=== PATIENT | female | born 1995 | race Two or more races ===

== ENCOUNTER 2016-12-25 13:59 | Emergency (ER) | payer OTHER ==
[2016-12-25] MEDS ORDERED: DEXAMETHASONE 10 MG/ML VIAL IVP ONE (14:35)
--- NOTE | 2016-12-25 14:35 | EDPHY ---
H & P Time Seen by Provider: 12/25/16 14:09 HPI/ROS: CHIEF COMPLAINT: Migraine headache HISTORY OF PRESENT ILLNESS: 20-year-old female presents to the emergency department with headache that began this morning. The patient states that she has migraine headaches typically on a weekly basis. She feels that this is a typical headache for her. She feels nauseous. She tried her home medications without relief. No reported trauma. No chest pain or difficulty breathing. No neck pain. No fevers or chills. She is photophobic however no other visual changes. REVIEW OF SYSTEMS: Constitutional: No fever, no chills. Eyes: No double or blurry vision. ENT: No sore throat. Respiratory: No cough, no shortness of breath. Cardiac: No chest pain. Gastrointestinal: Nausea. No abdominal pain, vomiting or diarrhea. Genitourinary: No dysuria. Musculoskeletal: No neck or back pain. Skin: No rashes. 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 Mentating normally and answering questions appropriately. Vital signs are stable. Eyes: Pupils equal and round. Extraocular motions are all intact. ENT: Mouth: Mucous membranes moist. Respiratory: No wheezing, rhonchi, or rales, lungs are clear to auscultation. Cardiovascular: Regular rate and rhythm. Gastrointestinal: Abdomen is soft and nontender, no masses, no rebound or guarding, bowel sounds normal. Neurological: Alert and oriented x 3, cranial nerves II through XII grossly intact Skin: Warm and dry, no rashes. Musculoskeletal: Nontender to palpate along the cervical, thoracic or lumbar spine. Neck is supple. Extremities: Full range of motion and no peripheral edema. Psychiatric: Patient is oriented X 3, there is no agitation. Constitutional: Initial Vital Signs Temperature (C) 36.4 C 12/25/16 14:04 Heart Rate 83 12/25/16 14:04 Respiratory Rate 16 12/25/16 14:04 Blood Pressure 114/76 12/25/16 14:04 O2 Sat (%) 100 12/25/16 14:04 O2 Delivery Mode Room Air Allergies/Adverse Reactions: No Known Allergies Allergy (Verified 12/25/16 14:07) Home Medications: Medication Instructions [facility]ed [facility] 12/25/16 Medical Decision Making ED Course/Re-evaluation: 20-year-old female presents to the emergency department with headache and feeling nauseous. Patient feels that this is the typical migraine headache. An IV was established and the patient was given Decadron, Toradol, Reglan, and Benadryl IV, IV normal saline and observed. The patient was feeling much better. She was comfortable being discharged home. Her headache resolved. Her nausea improved and she was drinking juice. She was given neurology referral. Differential Diagnosis: Headache including but not limited to subarachnoid hemorrhage, migraine headache , tension headache and infectious causes such as meningitis, pharyngitis and sinusitis. - Data Points Medications Given: Discontinued Medications Dexamethasone (Decadron Injection) 10 mg IVP EDNOW ONE Stop: 12/25/16 14:36 Last Admin: 12/25/16 15:15 Dose: 10 mg Diphenhydramine HCl (Benadryl Injection) 25 mg IVP EDNOW ONE Stop: 12/25/16 14:37 Last Admin: 12/25/16 15:15 Dose: 25 mg Sodium Chloride (Ns) 1,000 mls @ 0 mls/hr IV ONCE ONE PRN Reason: Wide Open Stop: 12/25/16 14:37 Last Admin: 12/25/16 15:15 Dose: 1,000 mls Ketorolac Tromethamine (Toradol) 30 mg IVP EDNOW ONE Stop: 12/25/16 14:37 Last Admin: 12/25/16 15:15 Dose: 30 mg Metoclopramide HCl (Reglan Injection) 10 mg IVP EDNOW ONE Stop: 12/25/16 14:37 Last Admin: 12/25/16 15:15 Dose: 10 mg Departure - Departure Disposition: Home, Routine, Self-Care Clinical Impression: Migraine headache Qualifiers: Migraine type: unspecified Status migrainosus presence: without status migrainosus Intractability: not intractable Qualified Code(s): G43.909 - Migraine, unspecified, not intractable, without status migrainosus Condition: Good Instructions: Migraine Headache (ED) Additional Instructions: Clear liquids and then slowly advance diet as tolerated. Return if you develop recurring headache, vomiting, or if you feel worse in any way. Referrals: Moise Keen MD [Medical Doctor] - 5-7 days, call for appt. (Neurologist on-call)
[2016-12-25] MEDS ORDERED: NS 1,000 ML IV ONE (14:36)
[2016-12-25] MEDS ORDERED: KETOROLAC 30 MG/1 ML SDV IVP ONE (14:36)
[2016-12-25] MEDS ORDERED: METOCLOPRAMIDE 10 MG/2 ML VIAL IVP ONE (14:36)
[2016-12-25 17:21] VITALS: BP 109/78; PULSE 83; RESP 14; TEMP 98.4; O2SAT 98
== END 2016-12-25 17:20 | disposition home or self-care (01) ==
DX: G43.909 Migraine, unspecified, not intractable, without status migrainosus (principal)
CPT/HCPCS: 96374; J1200; J1885; J2765

== ENCOUNTER 2018-12-28 11:30 | Emergency (ER) | payer OTHER ==
--- NOTE | 2018-12-28 13:05 | EDPHY ---
H & P Stated Complaint: swollen lymph/general fatigue abnl labs Time Seen by Provider: 12/28/18 12:56 HPI/ROS: CHIEF COMPLAINT: Lymphadenopathy, malaise, fever HISTORY OF PRESENT ILLNESS: The patient presents the ED with a 10 day history of lymphadenopathy, malaise, fatigue and fever. The patient saw her primary care provider approximately 3 days ago. She was noted to have slightly elevated liver function test and lymphocytosis. The patient's hepatitis panel was negative. She had a negative rapid flu in mono test. The patient complains of ongoing tender adenopathy. She denies rash. She denies abdominal pain. She is scheduled to see oncology for a consultation next week. REVIEW OF SYSTEMS: A comprehensive 10 point review of systems is otherwise negative aside from elements mentioned in the history of present illness. Source: Patient Exam Limitations: No limitations - Personal History LMP (Females 10-55): 1-7 Days Ago Current Tetanus Diphtheria and Acellular Pertussis (TDAP): No - Medical/Surgical History Hx Asthma: No Hx Chronic Respiratory Disease: No Hx Diabetes: No Hx Cardiac Disease: No Hx Renal Disease: No Hx Cirrhosis: No Hx Alcoholism: No Hx HIV/AIDS: No Hx Splenectomy or Spleen Trauma: No Other PMH: PMH- NOSE BLEEDS, MIGRAINES - Social History Smoking Status: Never smoked - Physical Exam Exam: General Appearance: Alert, no distress Eyes: Pupils equal and round no pallor or injection ENT, Mouth: Mucous membranes moist, tender anterior chain and posterior chain adenopathy noted Respiratory: There are no retractions, lungs are clear to auscultation Cardiovascular: Regular rate and rhythm Gastrointestinal: Abdomen is soft and nontender, no masses, bowel sounds normal Neurological: A&O, normal motor function, normal sensory exam, normal cranial nerves Skin: Warm and dry, no rashes Musculoskeletal: Neck is supple nontender Extremities: symmetrical, full range of motion Psychiatric: Patient is oriented X 3, there is no agitation Constitutional: Initial Vital Signs Temperature (C) 37.3 C 12/28/18 11:33 Heart Rate 100 12/28/18 11:33 Respiratory Rate 18 12/28/18 11:33 Blood Pressure 125/94 H 12/28/18 11:33 O2 Sat (%) 97 12/28/18 11:33 O2 Delivery Mode Room Air Allergies/Adverse Reactions: No Known Allergies Allergy (Verified 12/28/18 11:33) Home Medications: Medication Instructions Recorded NK [No Known Home Meds] 12/28/18 Medical Decision Making ED Course/Re-evaluation: The patient presents to the ED with concerns about worsening adenopathy. I reviewed the patient's past medical records. Laboratory testing is repeated and she has ongoing lymphocytosis, slight thrombocytopenia and a mild transaminitis. The patient is nontoxic well-appearing. She has no clinical evidence of meningitis. I have ordered an Ebstein Hutton virus panel. At this point time I do feel the patient is stable to follow up with Hematology as an outpatient. She will be discharged home with customary aftercare instructions and return precautions. Differential Diagnosis: Differential diagnosis considered includes Ebstein Hutton virus, hepatitis, viral syndrome, leukemia - Data Points Laboratory Results: Laboratory Results 12/28/18 13:20 12/28/18 12/28/18 12/28/18 13:20 13:20 13:20 WBC 12.86 10^3/uL H 10^3/uL (3.80-9.50) RBC 4.87 10^6/uL 10^6/uL (4.18-5.33) Hgb 12.9 g/dL g/dL (12.6-16.3) Hct 39.6 % % (38.0-47.0) MCV 81.3 fL L fL (81.5-99.8) MCH 26.5 pg L pg (27.9-34.1) MCHC 32.6 g/dL g/dL (32.4-36.7) RDW 13.1 % % (11.5-15.2) Plt Count 145 10^3/uL L 10^3/uL (150-400) MPV 10.0 fL fL (8.7-11.7) Neut % (Auto) Not Reported Lymph % (Auto) Not Reported [place] % (Auto) Not Reported Eos % (Auto) Not Reported Baso % (Auto) Not Reported Nucleat RBC Rel Count Not Reported Absolute Neuts (auto) Not Reported Absolute Lymphs (auto) Not Reported Absolute Monos (auto) Not Reported Absolute Eos (auto) Not Reported Absolute Basos (auto) Not Reported Absolute Nucleated RBC Not Reported Immature Gran % Not Reported Seg Neutrophils % 10.0 % % Band Neutrophils % 4.0 % % Lymphocytes % 85.0 % % Monocytes % 1.0 % % Eosinophils % 0.0 % % Basophils % 0.0 % % Metamyelocytes % 0.0 % % Myelocytes % 0.0 % % Promyelocytes % 0.0 % % Blast Cells % 0.0 % % Immature Gran # Not Reported Absolute Seg Neuts 1.29 10^3/uL L 10^3/uL (1.70-6.50) Absolute Band Neuts 0.51 10^3/uL 10^3/uL (0.00-0.70) Absolute Lymphocytes 10.93 10^3/uL H 10^3/uL (1.00-3.00) Absolute Monocytes 0.13 10^3/uL L 10^3/uL (0.30-0.80) Absolute Eosinophils 0.00 10^3/uL L 10^3/uL (0.03-0.40) Absolute Basophils 0.00 10^3/uL L 10^3/uL (0.02-0.10) Absolute Metamyelocyte 0.00 10^3/mL 10^3/mL (0.00-0.00) Absolute Myelocytes 0.00 10^3/mL 10^3/mL (0.00-0.00) Absolute Promyelocytes 0.00 10^3/uL 10^3/uL (0.00-0.00) Absolute Plasma Cells 0.00 10^3/uL 10^3/uL (0.00-0.00) Differential Comment SEE COMMENT RBC/WBC/PLT Morphology NORMAL (NORMAL) Atypical Lymphocytes 1+ H Absolute Blast Cells 0.00 10^3/uL 10^3/uL (0.00-0.00) Plasma Cells % 0.0 % % Smudge Cells 1+ H Platelet Estimate DECREASED L (ADEQ) Smear Review By Pending Total Bilirubin 0.4 mg/dL mg/dL (0.1-1.4) Conjugated Bilirubin 0.4 mg/dL mg/dL (0.0-0.5) Unconjugated Bilirubin 0.0 mg/dL mg/dL (0.0-1.1) AST 107 IU/L H IU/L (14-46) ALT 151 IU/L H IU/L (9-52) Alkaline Phosphatase 124 IU/L IU/L (38-126) Total Protein 8.1 g/dL g/dL (6.3-8.2) Albumin 4.6 g/dL g/dL (3.5-5.0) Beta HCG, Qual EBV Capsid Ag IgG Ab Pending EBV Capsid Ag IgM Ab Pending EBV Nuclear Antigen Ab Pending EBV Interpretation Pending Monoscreen 12/28/18 13:20 WBC RBC Hgb Hct MCV MCH MCHC RDW Plt Count MPV Neut % (Auto) Lymph % (Auto) [place] % (Auto) Eos % (Auto) Baso % (Auto) Nucleat RBC Rel Count Absolute Neuts (auto) Absolute Lymphs (auto) Absolute Monos (auto) Absolute Eos (auto) Absolute Basos (auto) Absolute Nucleated RBC Immature Gran % Seg Neutrophils % Band Neutrophils % Lymphocytes % Monocytes % Eosinophils % Basophils % Metamyelocytes % Myelocytes % Promyelocytes % Blast Cells % Immature Gran # Absolute Seg Neuts Absolute Band Neuts Absolute Lymphocytes Absolute Monocytes Absolute Eosinophils Absolute Basophils Absolute Metamyelocyte Absolute Myelocytes Absolute Promyelocytes Absolute Plasma Cells Differential Comment RBC/WBC/PLT Morphology Atypical Lymphocytes Absolute Blast Cells Plasma Cells % Smudge Cells Platelet Estimate Smear Review By Total Bilirubin Conjugated Bilirubin Unconjugated Bilirubin AST ALT Alkaline Phosphatase Total Protein Albumin Beta HCG, Qual NEGATIVE EBV Capsid Ag IgG Ab EBV Capsid Ag IgM Ab EBV Nuclear Antigen Ab EBV Interpretation Monoscreen NEGATIVE (NEGATIVE) Departure - Departure Disposition: Home, Routine, Self-Care Clinical Impression: Lymphocytosis, Thrombocytopenia, Viral syndrome Condition: Good Instructions: Viral Syndrome (ED) Additional Instructions: 1. Please follow-up with Hematology as scheduled. Additional testing has been ordered in the emergency department today including an Ebstein Hutton virus panel. 2. Return to the ED for markedly worsening symptoms or other concerns. 3. Tylenol and ibuprofen as needed for pain and fever. Referrals: Shad Mark PA [Primary Care Provider] - As per Instructions
[2018-12-28 14:38] LABS: PLATELET COUNT 145 10^3/uL (150-400)
[2018-12-28 15:16] VITALS: BP 129/95
== END 2018-12-28 15:18 | disposition home or self-care (01) ==
DX: D72.820 Lymphocytosis (symptomatic) (principal); D69.6 Thrombocytopenia, unspecified; B34.9 Viral infection, unspecified
CPT/HCPCS: 86664-90; 86665-90

== ENCOUNTER 2018-12-31 10:59 | Inpatient (IN) | payer OTHER ==
[2018-12-31] MEDS ORDERED: NS 1,000 ML IV ONE ×2 (11:47→13:39)
--- NOTE | 2018-12-31 11:52 | EDPHY ---
H & P Stated Complaint: Dizziness Time Seen by Provider: 12/31/18 11:17 HPI/ROS: CHIEF COMPLAINT: Dizziness, left arm pain HISTORY OF PRESENT ILLNESS: 23-year-old female presents with dizziness and left arm pain. 4 weeks ago she had a several day history of sore throat, which completely resolved. 2 weeks later, she developed recurrent sore throat, adenopathy and excessive fatigue. She was seen in this emergency department 3 days ago and EBV titers consistent with recent mononucleosis. 2 days ago, she developed intermittent left upper extremity pain, associated with numbness of her 4th and 5th fingers. The pain has been intermittent since then. This morning, she had similar pain, followed by a near syncopal episode. Currently she feels dizzy when she sits up and has left-sided weakness. No headache and no fever. REVIEW OF SYSTEMS: complete 10 point ROS reviewed and is negative except for the noted elements in the HPI - Personal History LMP (Females 10-55): 8-14 Days Ago Current Tetanus/Diphtheria Vaccine: Yes Current Tetanus Diphtheria and Acellular Pertussis (TDAP): Yes - Medical/Surgical History Hx Asthma: No Hx Chronic Respiratory Disease: No Hx Diabetes: No Hx Cardiac Disease: No Hx Renal Disease: No Hx Cirrhosis: No Hx Alcoholism: No Hx HIV/AIDS: No Hx Splenectomy or Spleen Trauma: No Other PMH: PMH- NOSE BLEEDS, MIGRAINES - Social History Smoking Status: Never smoked Alcohol Use: None Drug Use: None Additional Social 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, sensation intact to light touch, patellar reflexes 1+ bilaterally Skin: Warm and dry, no rash Extremities: Normal inspection, no tenderness Vascular: 2+ radial pulse Psychiatric: Mood and affect normal Constitutional: Initial Vital Signs Temperature (C) 36.9 C 12/31/18 11:03 Heart Rate 82 12/31/18 11:03 Respiratory Rate 16 12/31/18 11:03 Blood Pressure 155/103 H 12/31/18 11:03 O2 Sat (%) 99 12/31/18 11:03 O2 Delivery Mode Room Air Allergies/Adverse Reactions: No Known Allergies Allergy (Verified 12/28/18 11:33) Home Medications: Medication Instructions Recorded NK [No Known Home Meds] 12/28/18 Medical Decision Making - Diagnostics EKG Interpretation: EKG interpreted by me reveals normal sinus rhythm, rate 89, T-wave inversions in leads V2 and V3. Interpretation: Borderline EKG Imaging Results: Head CT 12/31/18 12:22 Impression: 1. No acute intracranial process. 2. Normal CT angiogram of the head and neck. 3. Cervical adenopathy, likely reactive. Might consider follow-up ultrasound in 3 months to ensure stability or resolution. Stenoses are calculated using [place] Symptomatic Carotid Endarterectomy Trial (NASCET) criteria. Findings and recommendations discussed with LANE GIL at 1323 hour, 2018. Head CTA 12/31/18 12:22 Impression: 1. No acute intracranial process. 2. Normal CT angiogram of the head and neck. 3. Cervical adenopathy, likely reactive. Might consider follow-up ultrasound in 3 months to ensure stability or resolution. Stenoses are calculated using [place] Symptomatic Carotid Endarterectomy Trial (NASCET) criteria. Findings and recommendations discussed with LANE GIL at 1323 hour, 2018. Neck CTA 12/31/18 12:22 Impression: 1. No acute intracranial process. 2. Normal CT angiogram of the head and neck. 3. Cervical adenopathy, likely reactive. Might consider follow-up ultrasound in 3 months to ensure stability or resolution. Stenoses are calculated using [place] Symptomatic Carotid Endarterectomy Trial (NASCET) criteria. Findings and recommendations discussed with LANE GIL at 1323 hour, 2018. Imaging: Discussed imaging studies w/ manager farm Radiologist, I viewed and interpreted images myself ED Course/Re-evaluation: This patient presents with a near syncopal episode and left upper extremity pain. On my initial exam, I set her up to examine her and her heart rate went to 110 and she felt lightheaded. IV normal saline 1 L given for dehydration. She has not had anything to eat or drink this morning. Will reassess after IV fluids. Clinically, this patient does not have meningitis or encephalitis and I have very low clinical suspicion for CVA or other intracranial abnormality. Reflexes present, and sx asymetric, ?GBS or variant, seems unlikely, especially with fairly sudden onset of LLE weakness. 1215: sitting up, IVF infusing, HR 89, had transient RUE weakness, resolved with positioning. Still c/o LLE weakness. Neuro exam unchanged. CT/CTA head and neck ordered. 1330: CT/CTA head and neck unremarkable, results discussed with the patient. She continues to have left lower extremity weakness and dizziness. Neurologic exam is unchanged, she continues to have left lower extremity weakness. MRI of the brain ordered. The hospitalist service was consulted for admission. 1445: MRI of the brain read by Dr. Keyur West is unremarkable except for a small arachnoid cyst. Etiology of the left lower extremity weakness is unclear. Fortunately there is no evidence of intracranial abnormality causing the weakness. The patient will be admitted to the [facility] floor. Continues to have left lower extremity weakness and inability to ambulate. ?related to recent EBV infection This pt utilized 40 minutes of critical care time exclusive of unbundled procedures. Time spent in initial assessment, serial exams, lab/Xray ordering and interpretation, time with consultants. Organ at risk: brain Differential Diagnosis: Altered mental status including but not limited to hypoglycemia, infectious process, electrolyte abnormality, head injury, CVA, brain tumor, encephalitis, meningitis, and intoxicants. - Data Points Laboratory Results: Laboratory Results 01/01/19 04:35 01/01/19 04:35 01/01/19 12:03 Fluid Source SPINAL FLUID CSF HSV I&II DNA (PCR) Cancelled EBV DNA, Qual Negative (Negative) Microbiology Results: MICROBIOLOGY 01/01/19 12:03 Cerebral Spinal Fluid Gram Stain - Final 01/01/19 12:03 Cerebral Spinal Fluid CSF Culture - Preliminary Medications Given: Acetaminophen (Tylenol) 650 mg PO Q4HRS PRN PRN Reason: Pain, Mild/Fever, Can Take PO Stop: 06/29/19 15:42 Last Admin: 01/02/19 09:37 Dose: 650 mg Bisacodyl (Dulcolax Rectal) 10 mg MN DAILY PRN; Protocol PRN Reason: Constipation Stop: 07/01/19 20:18 Last Admin: 01/03/19 13:58 Dose: 10 mg Diazepam (Valium) 5 mg PO Q4 PRN PRN Reason: Anxiety or spasms Stop: 07/01/19 18:10 Last Admin: 01/03/19 10:12 Dose: 5 mg Gabapentin (Neurontin) 300 mg PO BID [facility] Stop: 07/01/19 20:59 Last Admin: 01/03/19 09:03 Dose: 300 mg Sodium Chloride (Ns) 1,000 mls @ 100 mls/hr IV CONT [facility] Stop: 06/30/19 14:59 Last Admin: 01/03/19 09:03 Dose: 1,000 mls Acyclovir 700 mg/ Dextrose 114 mls @ 100 mls/hr IV Q8H [facility] Stop: 01/04/19 00:01 Last Admin: 01/03/19 09:03 Dose: 114 mls Oxycodone HCl (Oxycodone Ir) 5 - 10 mg PO Q3H PRN PRN Reason: MODERATE TO SEVERE PAIN Stop: 01/10/19 19:58 Last Admin: 01/03/19 05:27 Dose: 5 mg Prednisone (Prednisone) 60 mg PO DAILY [facility] Stop: 07/02/19 09:59 Last Admin: 01/03/19 09:03 Dose: 60 mg Senna/Docusate Sodium (Senokot-S) 1 - 2 tab PO BID [facility] PRN Reason: Protocol Stop: 07/01/19 20:59 Last Admin: 01/03/19 09:03 Dose: 2 tab Discontinued Medications Diazepam (Valium) 5 mg IVP Q6HRS PRN PRN Reason: Spasms Stop: 07/01/19 00:20 Last Admin: 01/02/19 09:37 Dose: 5 mg Diazepam (Valium) 5 mg PO Q6HRS PRN PRN Reason: Anxiety or spasms Stop: 07/01/19 13:47 Last Admin: 01/02/19 14:27 Dose: 5 mg Gabapentin (Neurontin) 100 mg PO ONCE ONE Stop: 01/01/19 07:12 Last Admin: 01/01/19 07:41 Dose: 100 mg Gabapentin (Neurontin) 100 mg PO BID [facility] Stop: 06/30/19 20:59 Last Admin: 01/02/19 09:37 Dose: 100 mg Gabapentin (Neurontin) 300 mg PO BID [facility] Stop: 07/01/19 09:59 Last Admin: 01/02/19 11:35 Dose: Not Given Gabapentin (Neurontin) 200 mg PO ONCE ONE Stop: 01/02/19 10:16 Last Admin: 01/02/19 11:29 Dose: 200 mg Sodium Chloride (Ns) 1,000 mls @ 0 mls/hr IV ONCE ONE; Wide Open PRN Reason: Protocol Stop: 12/31/18 11:48 Last Admin: 12/31/18 12:00 Dose: 1,000 mls Sodium Chloride (Ns) 1,000 mls @ 0 mls/hr IV ONCE ONE; Wide Open PRN Reason: Protocol Stop: 12/31/18 13:40 Last Admin: 12/31/18 14:32 Dose: 1,000 mls Methylprednisolone Sodium (Succinate 500 mg/ Dextrose) 100 mls @ 100 mls/hr IV ONCE ONE Stop: 01/01/19 15:09 Last Admin: 01/01/19 15:15 Dose: 100 mls Acyclovir 700 mg/ Dextrose 114 mls @ 100 mls/hr IV Q8HRS [facility] Stop: 01/31/19 14:59 Last Admin: 01/01/19 17:06 Dose: 114 mls Lorazepam (Ativan Injection) 0.5 mg IVP ONCE ONE Stop: 01/01/19 18:20 Last Admin: 01/01/19 18:26 Dose: 0.5 mg Departure - Departure Disposition: [facility] Clinical Impression: Left leg weakness, Dizziness Condition: Fair
[2018-12-31 11:54] LABS: PLATELET COUNT 163 10^3/uL (150-400)
[2018-12-31] MEDS ORDERED: IOPAMIDOL (ISOVUE 370) 100 ML BTL IV ONE (12:33)
--- NOTE | 2018-12-31 14:42 | CPEKG ---
Test Reason : OPEN Blood Pressure : / mmHG Vent. Rate : 089 BPM Atrial Rate : 086 BPM P-R Int : 125 ms QRS Dur : 086 ms QT Int : 374 ms P-R-T Axes : 020 046 020 degrees QTc Int : 456 ms Sinus rhythm Borderline T abnormalities, anterior leads Confirmed by Camelia Gil ([id number]) on 12/31/2018 2:42:29 PM Referred By: CAMELIA GIL Confirmed By:Camelia Gil
[2018-12-31] MEDS ORDERED: ACETAMINOPHEN 325 MG TAB PO PRN (15:43)
--- NOTE | 2018-12-31 16:47 | GHP ---
[f rep st] HISTORY AND PHYSICAL DATE OF ADMISSION: 12/31/2018 CHIEF COMPLAINT: Weakness. HPI: The patient is a 23-year-old college student at who complains of acute onset of dizziness an d weakness. She recently is recovering from a 3-4 week viral illness diagnosed as mono with positive EBV titers. She was sitting at the [facility] at the [facility] talking to her parents on the phone when she felt some pain radiating from her left shoulder to her left hand. She became hot and dizzy and when the pain persisted, she called a friend to get the paramedics to take her here. After coming to the emergency room during her evaluation, the doctor told her to move her leg and she was unable to move her left leg, which is also new finding. The dizziness persisted and she describes th is as balance issues, when she got up to use the bathroom she was unable to get there without holding on because she afraid she was going to fall. She denies any fever. She did have some mild chills. She has had no headache, although she has a history of migraines. No chest pain, coughing, shortnes s of breath. No abdominal complaints, nausea, vomiting, diarrhea. No urinary symptoms. No rash. N o other symptoms noted. REVIEW OF SYSTEMS: A 10-point review of systems is done and is negative, except as stated in the HPI . PAST MEDICAL HISTORY: Migraines. PAST SURGICAL HISTORY: Negative. MEDICATIONS: None. ALLERGIES: No known drug allergies. FAMILY HISTORY: Dad has lymphoma, diabetes, and hypertension. She has a mother with a history of br east cancer. SOCIAL HISTORY: She is from [facility]. 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 She denies any tobacco, alcohol, or recreational drug use. She does have a f iancee but is not sexually active. Menstrual periods are normal. She is not . PHYSICAL EXAM: VITAL: She has been afebrile, heart rate 89-100, blood pressure 110/85, respirations 18. She is 98% on room air. GENERAL: She is a very healthy-appearing 23-year-old [place] wh o is in no obvious distress. She is alert and oriented. HEENT: Pupils are equal. Extraocular move s intact. Mucous members moist. Oropharynx clear. NECK: Supple. No adenopathy but no significant tenderness. HEART: Regular without murmur, gallop, or rub. LUNGS: Clear bilaterally without whee ze, rhonchi, or rales. ABDOMEN: Soft, nontender, nondistended. EXTREMITIES: No clubbing, cyanosis , or edema. MUSCULOSKELETAL: No joint deformities or effusions. NEUROLOGIC: Face is symmetric. S peech is fluent. She is alert and oriented. Upper extremities, left upper extremity is slightly wea ker than the right upper extremity with decreased fire support specialist strength and generalized weakness. Left lower extremity is significantly weaker. Strength is 3+/5. She can just barely lift her leg off the bed with decreased flexion. PSYCHIATRIC: Mood is normal and appropriate. SKIN: Shows no rash. LABORATORY DATA: CBC shows a white count 12.8, hemoglobin 14.8, with a platelet count of 163. She d oes have a lymphocytosis noted but morphology appears normal. Chemistry shows normal electrolytes, g lucose is slightly elevated and LFTs are all slightly elevated. Beta hCG is negative. DIAGNOSTICS: MRI of her brain without contrast shows a benign 2.2 x 1.6 cm left posterior cranial fo ssa arachnoid cyst. No acute intracranial abnormality, cervical lymphadenitis noted. Head and neck CT angiogram showing no acute process and normal. ASSESSMENT AND PLAN: 1. A 23-year-old presents with acute weakness of her left and lower extremities associated with dizz iness. MRI of her brain without contrast is unremarkable, however, she does have objective findings of weakness. Unclear etiology. She did have a recent viral illness, EBV a few weeks ago as her only prodrome, but the symptoms today started fairly acutely. Discussed with Neurology, Dr. Young, who wi ll see her in consultation. In the meantime. I will get further imaging of her spine with and witho ut contrast to look for any lesions. Could consider further imaging the MRI with contrast. Further recommendations will depend upon the patient's clinical course. In the meantime, we will await furth er diagnostics and neurology consult before any treatment will be initiated. 2. Lymphocytosis, likely related to her recent EBV infection. I will repeat a CBC in the morning. The patient has a followup appoint with Dr. Gonzalez. Because of this I will run it by the oncologist in the morning to see if there is any further testing to be done prior to that. However, again, her neutrophil count is relatively normal and I suspect her lymphocytosis is due to her mono. 3. Elevated liver function tests. Again likely related to her mono/EBV infection and will follow up liver function tests in the a.m. She is relatively asymptomatic from that. 4. Deep vein thrombosis prophylaxis. Patient is low risk given her age. We will encourage ambulati on and place SCDs while she is here in case she needs further evaluation with an LP, we will not prov carl chemical prophylaxis at this time. /[id number]/MODL
[2018-12-31] MEDS ORDERED: GADOBUTROL 10 ML VIAL IVP ONE (17:18)
[2018-12-31] MEDS: oxyCODONE IR 5 MG TAB PO PRN ×2 (20:42→22:12)
--- NOTE | 2018-12-31 21:10 | NEUROPROG ---
Assessment: [id number] - Neurology Consult: - CC: Dr. Zonia Mccray consulted neurology for weakness. Results placed in EMR for her review. - HPI: 12/31/18: Pt with recent diagnosis of viral illness felt to be mono for 3-4 weeks when on 12/31/18 she noted left shoulder pain radiating into her left hand. She felt dizzy so called EMS. In the ER she became aware of left leg weakness. Head CT, CTA head/neck, brain MRI wo, and C/T/L MRI wwo all essentially unremarkable for cause. Brain MRI showed benign appearing arachnoid cyst and cervical imaging did show some cervical adenopathy which could be from her recent [place] infection. I initially saw pt on 12/31/18. Neurologic exam showed left arm and leg weakness but otherwise normal exam with preserved reflexes. 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 I will ask ID to evaluate for any active infection as well as obtain spinal tap looking for abnormalities that could help diagnosis Guillian Greentop Syndrome. If, after spinal tap, symptoms are felt most consistent with Guillian Greentop Syndrome then will likely recommend course of IVIG. - PMHx: migraines - SHx: from [place] FHx: lymphoma, DM, HTN, BRCA - ROS: Pt denied acute fever, total vision loss, active severe chest pain, respiratory failure, total body severe rash, total bowel/bladder incontinence, psychosis, active seizures, or active bleeding - O: VS reviewed General: Alert Eyes: Fundoscopic exam not able to visualize optic disks CV: Heart RRR, no murmur, no carotid bruit Lungs: Clear to auscultation bilaterally, no rhonchi or rales Neuro: - Mental: . Oriented x person/place/date . concentration appears normal . speech fluency/comprehension normal . memory appears normal . fund of knowledge appear intact - Cranial Nerves: . II: PERRL, VFFTC . III/IV/: EOMI, no nystagmus, normal smooth pursuits, no Ptosis . V: facial sensation intact to LT . VII: face symmetric to eye closure and smile . VIII: hearing intact to conversation . IX/X: uvula raises symmetrically . XI: SCM 5/5 B/L strength . XII: tongue protrudes midline w/nl strength - Motor: . Tone: normal tone in all 4 extremity . Strength: weakness in left arm and leg, 5/5 strength everywhere else - Reflexes: B/L bic/BR/patella/ach 2/ - Sensory: all 4 extremity intact to light touch - Coord: [id number] wnl, LOURDES wnl, rxiq-bi-wame wnl - Gait: deferred - Labs: 12/31/18- CBC WBC 12.83H, Chem COw 21L GLuc 102H, LFT AST 102H ALT 170H Alk Phos 167H Tot Prot 9.3H - Rads: 12/31/18- Head CT and CTA head/neck: unremarkable 12/31/18- Brain MRI wo con: benign appearing posterior fossa arachnoid cyst, no acute changes, lymphadenitis (I personally visualized the images on 12/31/18) 12/31/18- C/T/L MRI wwo: relatively unremarkable, mild degen changes in thoracic region - Assessment: 1. 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 Recommend ID consult and spinal tap to further evaluate. - Plan: - ID consult (I will speak with them in the morning regarding the case and ask them to consult as well as given input on labs to order with spinal tap) - Spinal Tap (lumbar puncture) to check cell count, protein, glucose, culture, and any additional labs felt useful by ID - Consider IVIG course if labs/CSF studies are consistent with Guillian Greentop Syndrome - Neurology will continue to follow closely Objective: Vital Signs Temp Pulse Resp BP Pulse Ox 36.6 C 86 16 113/75 99 12/31/18 19:48 12/31/18 19:48 12/31/18 19:48 12/31/18 19:48 12/31/18 19:48 Allergies/Adverse Reactions: No Known Allergies Allergy (Verified 12/28/18 11:33)
[2018-12-31 22:51] LABS: CREATINE KINASE 91 IU/L (0-156)
[2019-01-01 05:10] LABS: PLATELET COUNT 144 10^3/uL (150-400)
[2019-01-01] MEDS ORDERED: GABAPENTIN 100 MG CAP PO ONE (07:11)
--- NOTE | 2019-01-01 09:16 | ASMTCMCOM ---
CM Note CM Note Notes: Chart reviewed for discharge planning needs. 23 year old student with c/o neurological symptoms after 3-4 week viral illness. Neuro and hospital medicine following. Needs TBD . Plan: TBD Date Signed: 01/01/2019 09:15 AM Electronically Signed By:Tabby Mix RN
--- NOTE | 2019-01-01 09:36 | NEUROPROG ---
Assessment: [id number] - Neurology Consult: - CC: F/U for left arm/leg weakness - Narrative Summary: 12/31/18: Pt with recent diagnosis of viral illness felt to be mono for 3-4 weeks when on 12/31/18 she noted left shoulder pain radiating into her left hand. She felt dizzy so called EMS. In the ER she became aware of left leg weakness. Head CT, CTA head/neck, brain MRI wo, and C/T/L MRI wwo all essentially unremarkable for cause. Brain MRI showed benign appearing arachnoid cyst and cervical imaging did show some cervical adenopathy which could be from her recent [place] infection. I initially saw pt on 12/31/18. Neurologic exam showed left arm and leg weakness but otherwise normal exam with preserved reflexes. It seemed her acute left arm and leg weakness may be a mild form of Guillain [place] syndrome (acute demyelinating inflammatory polyneuropathy) or post-viral myopathy. I will ask ID to evaluate for any active infection as well as obtain spinal tap looking for abnormalities that could help diagnosis Guillain [place] Syndrome. If, after spinal tap, symptoms are felt most consistent with Guillain [place] Syndrome then will likely recommend course of IVIG. - HPI: F/U 01/01/19. CK wnl. Left arm/leg weakness unchanged from yesterday. Will proceed with spinal tap and have hospitalist touch base with ID and hematology to ensure they do not think any additional testing is needed. Based on spinal tap results and pts weakness tomorrow morning I will consider whether or not to proceed with 5 day course of IVIG for suspected atypical Guillian [place] Syndrome. - PMHx: migraines - SHx: from [place] FHx: lymphoma, DM, HTN, BRCA - ROS: Pt denied acute fever, total vision loss, active severe chest pain, respiratory failure, total body severe rash, total bowel/bladder incontinence, psychosis, active seizures, or active bleeding - Labs: 12/31/18- CBC WBC 12.83H, Chem COw 21L GLuc 102H, LFT AST 102H ALT 170H Alk Phos 167H Tot Prot 9.3H - Rads: 12/31/18- Head CT and CTA head/neck: unremarkable 12/31/18- Brain MRI wo con: benign appearing posterior fossa arachnoid cyst, no acute changes, lymphadenitis (I personally visualized the images on 12/31/18) 12/31/18- C/T/L MRI wwo: relatively unremarkable, mild degen changes in thoracic region - Assessment: 1. Acute onset of left arm and leg weakness 3-4 weeks after infectious mononucleosis: Concern for possible autoimmune response to recent viral illness causing possible mild Guillian [place] Syndrome. Recommend ID consult and spinal tap to further evaluate. - Plan: - Hospitalist to touch base with hematology and ID to determine if they recommend any additional testing - Spinal Tap (lumbar puncture) to check cell count, protein, glucose, culture - Consider IVIG 5 day course if labs/CSF studies are consistent with Guillian [place] Syndrome tomorrow morning - Neurology will continue to follow closely - 35 min spent with patient, majority of time counseling on prognosis and treatment plan Objective: Vital Signs Temp Pulse Resp BP Pulse Ox 36.6 C 104 H 16 129/86 H 96 01/01/19 07:44 01/01/19 07:44 01/01/19 07:44 01/01/19 07:44 01/01/19 07:44 Laboratory Results 01/01/19 04:35 01/01/19 04:35 12/31/18 01/01/19 01/02/19 05:59 05:59 05:59 Intake Total 300 Output Total 600 Balance -300 Allergies/Adverse Reactions: No Known Allergies Allergy (Verified 12/28/18 11:33)
[2019-01-01] MEDS ORDERED: LIDOCAINE 1% 300 MG/30 ML SDV ONE (10:11)
[2019-01-01 10:38] LABS: INR 1.08 (0.83-1.16); PROTIME(PATIENT) 13.6 SEC (12.0-15.0)
[2019-01-01] MEDS: oxyCODONE IR 5 MG TAB PO PRN ×4 (10:56→23:53)
--- NOTE | 2019-01-01 13:22 | GCON ---
[f rep st] CONSULTATION HEMATOLOGY CONSULTATION NOTE DATE OF CONSULTATION: 01/01/2019 REASON FOR CONSULTATION: Lymphocytosis and cervical lymphadenopathy. HISTORY OF PRESENT ILLNESS: Angela is a pleasant 23-year-old female who has had approximately 3 or 4 weeks of night sweats, fatigue, intermittent fevers. She was seen in the outpatient setting and t ested positive for Tone-Hutton infection (mononucleosis). She was seen in the outpatient setting yesterday. She noted some pain, dizziness and weakness predom inantly on the left side. She had trouble moving her left leg. She was brought to the emergency dep artment. A CT of the head and neck, as well as MRI of the brain, cervical spine, lumbar spine and thoracic spi ne showed no concerning lesions or abnormalities. 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 A lumbar puncture is planned for later to day. She reports her symptoms are somewhat better, though she does have some residual left lower ext remity weakness. She has had an approximate 7-pound weight loss over the past month. She has also n oted some adenopathy in the right axilla. PAST MEDICAL HISTORY: Migraines. PAST SURGICAL HISTORY: None. FAMILY MEDICAL HISTORY: Patient reports her father was diagnosed with Hodgkin lymphoma. She reports that both grandmothers (maternal and paternal) had breast cancer. SOCIAL HISTORY: The patient is a [place]. 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 She is a lifelong nonsmoker. She does not use alcohol or recreational drugs. REVIEW OF SYSTEMS: As outlined above. Remainder of 12-point review of systems otherwise negative. PHYSICAL EXAM: GENERAL: The patient is examined with one nurse, Johanny, present for entire exam. HEENT: Pupils equal. Sclerae nonicteric. Conjunctiva normal. NECK: Patient has 2 palpable left posterior cervical nodes, 1 measuring approximately 2 cm in size, the 2nd measuring approximately 1 c m in size. Both are mobile. There is no palpable supraclavicular adenopathy. No axillary adenopath y. HEART: Regular without murmur. LUNGS: Clear bilaterally. No flank tenderness. ABDOMEN: Soft , nontender, nondistended. Spleen is nonpalpable. EXTREMITIES: No extremity swelling or edema. SK IN: No visible skin rash. NEURO: Patient is alert, oriented, and appropriate with fluent speech. She has an apparent decrease in her left lower extremity strength with some difficulty raising her le ft lower extremity against gravity off the bed. She is able to do so, but it is difficult for the pa tient. There is no apparent left upper extremity weakness. IMAGING STUDIES: As outlined above. LABORATORY STUDIES: EBV titers done December 28, 2018 are positive for the EBV capsid IgM antibody. CBC from today, white count 8000, hemoglobin 12.5, hematocrit 37.4, MCV 79.2, platelet count is 144,000, absolute neutrophil count is 890, absolute lymphocyte count is 6780. Peripheral blood smear shows a typical lymphocytes and occasional smudge cells. Sodium 139, potassium 3.9, chloride 108, bicarb 21, BUN 7, creatinine 0.8. AST 54, ALT 110, alkaline phosphatase 113, total protein today is 7.2, album in 3.9. IMPRESSION: 1. Tone-Hutton infection. 2. 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 3. Lymphocytosis, likely secondary to #1. 4. Cervical lymphadenopathy likely secondary to #1. Angela is a pleasant 23-year-old female who is admitted with complications apparently from an Epste in-Hutton virus infection. I suspect her lymphocytosis and left cervical adenopathy are directly relat ed to her EBV infection as these are commonly associated with EBV infection. The overall picture marte s not appear consistent with a lymphoproliferative process. The patient is quite concerned about thi s possibility given her father's history. Given her symptoms and their persistence, I think it is re asonable to send a peripheral blood flow cytometry for lymphoma. I have also asked that cytology be performed on her CSF specimen. I will order an ultrasound of her neck as well as her abdomen to eval uate her cervical lymphadenopathy and to evaluate for splenomegaly. I favor outpatient followup once discharged in our clinic to ensure resolution of her lymphocytosis. If her symptoms were to persist or worsen, we could certainly consider excisional biopsy of 1 of her palpable cervical nodes. The patient did have a new patient appointment scheduled for later today w alma rosa Gonzalez. I will notify him of her hospital admission and she can certainly follow up with Dr Delvin Gonzalez upon discharge. The above plan was discussed with the patient. Her questions were answere d. I also discussed her case with Dr. Mccray of the hospitalist service. Total time for today's visit was approximately 45 minutes of which greater than 50% was spent in coun seling and care coordination. /[id number]/MODL
--- NOTE | 2019-01-01 13:22 | HOSPPROG ---
Hospitalist Progress Note Assessment/Plan: Healthy 23-year-old with recent EBV infection is admitted with left lower extremity weakness left upper extremity weakness and pain. Evaluation has been unremarkable so far with normal MRI of her brain, and spine. Discussed with Neurology. # acute left upper and lower extremity weakness associated with some neuropathic pain. Unclear etiology although likely related to recent viral illness and possible autoimmune reaction. Evaluation negative so far. Status post LP. * Discussed in detail with Neurology * Id consult * LP * Supportive care consider options once data is back from LP # neuropathic pain left upper extremity, seems to respond well to Gabapentin will continue. # lymphocytosis with mild neutropenia ANC less than a 1000. Discussed with Oncology as this likely is related to her EBV infection however patient did have a follow-up with Dr. Gonzalez today and has a family history of lymphoma. Dr. Alonso will consult and recommend any further testing for this. # recent EBV infection with elevated LFTs, slightly improved today. Patient reassured Subjective: Continues to complain of weakness in her left lower extremity and left upper extremity. The pain in her arm was improved with a dose of gabapentin I will continue that for now. Objective: Vital Signs Temp Pulse Resp BP Pulse Ox 37.1 C 89 16 115/81 H 98 01/01/19 12:22 01/01/19 12:22 01/01/19 12:22 01/01/19 12:22 01/01/19 12:22 Laboratory Results 01/01/19 04:35 01/01/19 04:35 12/31/18 01/01/19 01/02/19 05:59 05:59 05:59 Intake Total 300 Output Total 600 Balance -300 PT 13.6 SEC (12.0-15.0) 01/01/19 10:15 INR 1.08 (0.83-1.16) 01/01/19 10:15 - Physical Exam Constitutional: no apparent distress, appears nourished Eyes: PERRL Ears, Nose, Mouth, Throat: moist mucous membranes Cardiovascular: regular rate and rhythym Respiratory: no respiratory distress, clear to auscultation Gastrointestinal: normoactive bowel sounds, soft, non-tender abdomen Genitourinary: no bladder fullness Skin: warm, normal color Musculoskeletal: abnormal gait, No joint effusion, No joint tenderness, No pain with ROM Neurologic: AAOx3, weakness (Left upper and left lower extremity) Psychiatric: interacting appropriately, not anxious ICD10 Worksheet Patient Problems: Problems Problem Status Onset Left leg weakness Acute Dizziness Acute
[2019-01-01] MEDS ORDERED: methylPREDNISolone SOD SUCC 500 MG in D5W 100 ML IV ONE (14:10)
[2019-01-01] MEDS ORDERED: ACYCLOVIR 700 MG in D5W 100 ML IV SCH (15:00)
[2019-01-01] MEDS ORDERED: LORazepam 2 MG/ML INJ IVP ONE (18:19)
[2019-01-01] MEDS ORDERED: LORazepam 2 MG/ML INJ ONE (18:20)
[2019-01-01] MEDS: NS 1,000 ML IV SCH (19:50)
[2019-01-01] MEDS: GABAPENTIN 100 MG CAP PO SCH (20:47)
--- NOTE | 2019-01-01 23:52 | HOSPPROG ---
Hospitalist Progress Note Assessment/Plan: I responded to a stat team call earlier this evening for this patient because of tachycardia and question of seizure. The patient is admitted today with acute weakness in the left upper and lower extremity with some sense of numbness and painful paresthesias in the same area , coming some weeks after a diagnosis of monocytosis. This evening she developed onset of tachycardia in the 130s which was sinus on bus driver/monitor. She was having ongoing complaints of headache and the left arm and leg symptoms as above, and was having uncontrolled motor activities. As I enter the room the patient was still tachycardic in the 120s, had good blood pressure, no fever and her breathing was rapid and hyperventilating. She appeared quite anxious. Skin is warm and dry with good color. She denied shortness of breath. Her pulse was rapid but palpable skin warm and diaphoretic. Hands and feet however were slightly cool. Notably she had approximately every 10 sec a characteristic repeated sudden contraction of trunk muscles pulling her left shoulder and chest slightly off the bed and toward the right. In addition to this there was some ongoing rhythmic movement of her left hand and wrist. With this she was wide awake alert oriented talkative with no new focal neurologic abnormalities. She had no new symptoms otherwise. Her headache persisted as severe. Her lungs were clear heart regular no edema no new skin changes or joint changes. We are able to talk her to a more comes date and get her to slow her breathing down which did help bring her heart rate down but the twitching and rhythmic movements of the left hand did not stop. Because she was extremely anxious I did give her small dose of 0.5 mg Ativan which helped her quite a bit. I followed her with 3 subsequent visits to assess her neurologic condition and by the time of the last visit this evening the twitching had mostly subsided and the rhythmic movement of the left hand had subsided completely. Is unclear to me what was causing these abnormal movements. She clearly had quite a bit of anxiety in this may have played a role. It is hard to entirely rule out seizure but this seems unlikely given the illness that she has so far. I did review with Dr. Barney Young. We talked about potentially transferring to [facility] of her rhythmic movements did not resolved. At this point however they have resolved. She has normal MR imaging of the brain in the entire spinal cord and normal spinal fluid from lumbar puncture. I did review as well with Dr. Marco Antonio Ly this evening. We elected not to make any changes and continue on with acyclovir for the moment.+ > 45 mins critical care time Objective: Vital Signs Temp Pulse Resp BP Pulse Ox 36.6 C 91 14 110/70 98 01/01/19 20:16 01/01/19 20:16 01/01/19 20:16 01/01/19 20:16 01/01/19 20:16 Microbiology 01/01/19 12:03 Gram Stain - Final Cerebral Spinal Fluid Laboratory Results 01/01/19 04:35 01/01/19 04:35 12/31/18 01/01/19 01/02/19 06:59 06:59 06:59 Intake Total 300 Output Total 600 1600 Balance -300 -1600 PT 13.6 SEC (12.0-15.0) 01/01/19 10:15 INR 1.08 (0.83-1.16) 01/01/19 10:15 ICD10 Worksheet Patient Problems: Problems Problem Status Onset Dizziness Acute Left leg weakness Acute
[2019-01-02] MEDS: GABAPENTIN 100 MG CAP PO SCH ×2 (00:01→09:37)
[2019-01-02] MEDS ORDERED: DIAZEPAM 5 MG/ML 1 ML SYR IVP PRN (00:21)
[2019-01-02] MEDS: ACYCLOVIR 700 MG in D5W 100 ML IV SCH ×3 (00:28→17:59)
--- NOTE | 2019-01-02 05:37 | GCON ---
[f rep st] CONSULTATION INFECTIOUS DISEASE CONSULTATION DATE OF CONSULTATION: 01/01/2019 REFERRING PHYSICIAN: Zonia Mccray MD REASON FOR CONSULTATION: Myelitis with Tone-Hutton virus infection. HISTORY OF PRESENT ILLNESS: The patient is a 23-year-old female without significant past medical his tory, who I am asked to see in consultation for left upper and lower extremity weakness in the settin g of acute EBV infection. The patient describes developing upper respiratory symptoms approximately 4 weeks ago. Approximately 2 weeks ago, she developed fever and chills with fatigue, malaise, and ce rvical lymphadenopathy. A mild sore throat was also present. She initially was seen in evaluation w here she had Monospot performed, which was negative. Given persistent symptoms, she [facility] with concern for mono based on symptomatology at which point in time she had formal EBV antibodies performed on 12/28/2018, which showed a positive EBV capsid antigen IgM with negative caps id antigen IgG and negative nuclear antigen antibody consistent with acute EBV. The day preceding ad mission, the patient developed abrupt onset of burning pain in her left forearm which extended into h er 4th and 5th digits. Subsequently, she developed onset of weakness in the left upper extremity and subsequently in the left lower extremity where she could not lift her leg. This prompted a call to 911 and further evaluation at [facility]. She did not have any bowel or bladder retention. Evaluation reve aled weakness in both the left upper and left lower extremities. Further evaluation including MRI of the brain, cervical, thoracic and lumbar spine was performed without evidence of cord edema or enhan cing lesions or abnormalities in the brain other than a benign-appearing 2.2 x 1.6 cm left posterior cranial fossa arachnoid cyst. Some sinus thickening was present, but no air-fluid levels were noted. Cervical lymphadenopathy was also noted by MRI. She has been seen in consultation by Neurology wit h consideration for atypical presentation of Guillain-[place] with plans to start on high-dose Solu-Med rol today. The patient underwent a lumbar puncture earlier today showing 0 white blood cells, 0 red blood cells with glucose 37, and protein 37. CSF meningoencephalitis panel has been submitted to [facility] for further assessment. The patient has never had similar symptoms in the past. Colin tijerina feels like her overall strength and sensation have not changed significantly since hospitalization. She does not have any right-sided involvement. She has maintained her ability to walk with her lef t lower extremity weakness. She notes, however, that she has difficulty lifting her leg off the bed and maintaining it there. Given the presence of acute EBV via serologic testing and the neurologic f indings as outlined above, Infectious Disease consultation is requested to assist in her ongoing eval uation and management. PAST MEDICAL HISTORY: Migraines. PAST SURGICAL HISTORY: Unremarkable. CURRENT MEDICATIONS: Neurontin 100 mg orally twice daily. ALLERGIES: No known drug allergies. SOCIAL HISTORY: The patient does not smoke or drink alcohol. There is no drug use. The patient tra veled to visit family in [facility] 6 weeks ago. No unusual animal exposures other than she kept a cat for several days for a friend. No sexual activity noted. FAMILY HISTORY: Diabetes, hypertension. REVIEW OF SYSTEMS: Outside of that noted in the HPI, the remainder of 10-system review is unremarkab le. PHYSICAL EXAMINATION: VITAL SIGNS: Temperature 37.0, heart rate 107, respiratory rate 20, blood pre ssure 129/84, oxygen saturation 98% on room air. GENERAL: Patient is well nourished, well developed , in no acute distress. She appears nontoxic. HEENT: There is no scleral icterus, conjunctival inj ection, or conjunctival petechiae. The oropharynx shows moist mucous membranes with dentition being in good repair. No ulcerations noted. There is no sinus tenderness. NECK: Supple without palpable lymphadenopathy or thyromegaly. CHEST: Clear to auscultation bilaterally without adventitious soun ds. The respiratory effort is normal. CARDIOVASCULAR: Regular rate and rhythm without murmurs, gal lops, or rubs. ABDOMEN: Soft, nontender, and nondistended. There is no palpable organomegaly. [place] el sounds are present. SKIN: No rashes present. No stigmata of endocarditis. The skin is warm and dry to touch. LYMPHATICS: No cervical or supraclavicular nodes. NEUROLOGIC: Patient is alert and interacts appropriately with examiner. Cranial nerves 2-12 are grossly intact. The patient has 4/5 strength in the left upper extremity and 3/5 strength in the left lower extremity. Sensation is dec reased in the hand. Deep tendon reflexes are 2+ throughout. LABORATORY DATA: White blood cell count 8.0, hematocrit 37.4, platelets 144, neutrophils 11%, lympho cytes 84%, 2+ atypical lymphocytes present. Serum creatinine 0.8, AST 54, ALT 110, alkaline phosphat ase 113, bilirubin 0.3, albumin 3.9. CSF shows 0 white blood cells and 0 red blood cells; glucose 57 and protein 37. CSF meningoencephalitis panel is pending. CSF Gram stain shows no organisms or whi te blood cells. MRI findings as outlined above. Abdominal ultrasound shows evidence of splenomegaly . Neck ultrasound shows evidence of cervical lymphadenopathy. 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 Given the temporal a ssociation with onset of EBV and antibody profile consistent with EBV as well as prominent atypical l ymphocytosis on her CBC, suspect that underlying neurologic findings are in fact related to acute EBV . Management of this entity is largely based on anecdotal case reports. The role of acyclovir is co ntroversial in this setting, although has been utilized based on review of literature primarily as ou tlined in case reports. Steroids have also been utilized in this circumstance. RECOMMENDATIONS: 1. Acyclovir 700 mg IV q.8 hours. 2. Agree with plans for corticosteroid therapy as outlined by Neurology. 3. Will await CSF meningoencephalitis panel. 4. We will add EBV PCR to CSF. 5. Will try to review with neuro-infectious disease group at the [facility] to determine if other therapeutic considerations are present. 6. Clinical findings and plan were discussed with the patient and Dr. Mccray today. Thank you for this consultation. We will continue to follow the patient with you. /[id number]/MODL
--- NOTE | 2019-01-02 08:16 | PDMN ---
Medical Necessity Medical necessity: MCG: GRG neurology: 23 yo F with LLE weakness, LUE weakness , dizziness and pain, elevted LFT's, mild neutropenia, - pt with 2 week hx of weakness intermittent fevers, Dg with EBV- now also with lymphocytosis, cervical lymphadenopathy- neurology consult; consult suspects Guillain-[place] secondary to EBV. -Lumbar puncture planned - ID consult suspects EBV with myelitis or mononeuritis multiplex. , awaiting further tests results. . status changed to INPT 01/01/19 for ongoing med nec care- further monitoring, eval and tx > 2 MN>
[2019-01-02] MEDS ORDERED: GABAPENTIN 300 MG CAP PO SCH (10:00)
--- NOTE | 2019-01-02 10:02 | NEUROPROG ---
Assessment: [id number] - Neurology Consult: - CC: F/U for left arm/leg weakness - Narrative Summary: 12/31/18: Pt with recent diagnosis of viral illness felt to be mono for 3-4 weeks when on 12/31/18 she noted left shoulder pain radiating into her left hand. She felt dizzy so called EMS. In the ER she became aware of left leg weakness. Head CT, CTA head/neck, brain MRI wo, and C/T/L MRI wwo all essentially unremarkable for cause. Brain MRI showed benign appearing arachnoid cyst and cervical imaging did show some cervical adenopathy which could be from her recent Blair infection. I initially saw pt on 12/31/18. Neurologic exam showed left arm and leg weakness but otherwise normal exam with preserved reflexes. It seemed her acute left arm and leg weakness may be a mild form of Guillain Garnett syndrome (acute demyelinating inflammatory polyneuropathy) or post-viral myopathy. I will ask ID to evaluate for any active infection as well as obtain spinal tap looking for abnormalities that could help diagnosis Guillain Garnett Syndrome. If, after spinal tap, symptoms are felt most consistent with Guillain Garnett Syndrome then will likely recommend course of IVIG. - F/U 01/01/19. CK wnl. Left arm/leg weakness unchanged from yesterday. Will proceed with spinal tap and have hospitalist touch base with ID and hematology to ensure they do not think any additional testing is needed. Based on spinal tap results and pts weakness tomorrow morning I will consider whether or not to proceed with 5 day course of IVIG for suspected atypical Guillain Garnett Syndrome. - HPI: F/U 01/02/19. Spinal tap with unremarkable labs. Pts symptoms and clinical picture did not fit Guillain Garnett Syndrome so I suspect it is more likely some form of autoimmune weakness from recent Blair infection. Her exam shows give- way weakness in left arm and leg so weakness may also be due to poor effort from underlying fatigue from Blair illness. Pt given IV Solumedrol 500 mg on 01/01. Later in the evening of 01/01/19 pt developed anxiety and motor spasms that seemed to resolve when she relaxed and was given ativan 0.5. Pt had been on gabapentin that has anti-seizure properties and was fully awake so seizures seems very unlikely. Most likely she had anxiety to explain motor spasms. Her friend at bedside reported spasms not present in sleep and seem intermittent. I will recommend prednisone 60 mg for 7 days to treat possible autoimmune weakness. Pt can f/u with me after hospital discharge to get EMG/NCS of left arm/leg to further evaluate her symptom cause. If her spasms of left arm/leg worsen or seem more consistent with seizures then we can always consider transfer to [facility] for continuous EEG monitoring. - PMHx: migraines - SHx: from [place] FHx: lymphoma, DM, HTN, BRCA - ROS: Pt denied acute fever, total vision loss, active severe chest pain, respiratory failure, total body severe rash, total bowel/bladder incontinence, psychosis, active seizures, or active bleeding - Labs: 12/31/18- CBC WBC 12.83H, Chem COw 21L GLuc 102H, LFT AST 102H ALT 170H Alk Phos 167H Tot Prot 9.3H 01/01/19- CSF clear/colorless, WBC 0, RBC 0, Prot 37, Gluc 57, Gram stain negative - Rads: 12/31/18- Head CT and CTA head/neck: unremarkable 12/31/18- Brain MRI wo con: benign appearing posterior fossa arachnoid cyst, no acute changes, lymphadenitis (I personally visualized the images on 12/31/18) 12/31/18- C/T/L MRI wwo: relatively unremarkable, mild degen changes in thoracic region - Assessment: 1. Acute onset of left arm and leg weakness 3-4 weeks after infectious mononucleosis: Concern for possible autoimmune response to recent viral illness causing left arm/leg weakness. - 2. Twitching in left arm/leg: [place] to be from anxiety amplified by recent steroid use. Pt on anti-seizure medication (gabapentin) with symptoms only intermittently present when she is awake and occurring without any impairment of consciousness so I do not suspect seizures. - Plan: - Recommend Prednisone 60 mg qd x 7 days - Increase gabapentin 100 mg bid to 300 mg bid for anxiety, pain control, and to cover any possibility of seizures - F/U with neurology after hospital discharge for left arm/leg EMG/NCS - Agree with ID and hematology recs (I can see pt on 01/03/19 at 3 pm if she is discharged before that) - Neurology will continue to follow closely - 35 min spent with patient, majority of time spent counseling on condition and treatment plans Objective: Vital Signs Temp Pulse Resp BP Pulse Ox 36.6 C 78 16 109/60 99 01/02/19 08:22 01/02/19 08:22 01/02/19 08:22 01/02/19 08:22 01/02/19 08:22 Laboratory Results 01/02/19 04:38 01/01/19 01/02/19 01/03/19 05:59 05:59 05:59 Intake Total 800 Output Total 1600 650 Balance -1600 150 PT 13.6 SEC (12.0-15.0) 01/01/19 10:15 INR 1.08 (0.83-1.16) 01/01/19 10:15 Allergies/Adverse Reactions: No Known Allergies Allergy (Verified 12/28/18 11:33)
[2019-01-02] MEDS ORDERED: GABAPENTIN 100 MG CAP PO ONE (10:15)
--- NOTE | 2019-01-02 11:10 | PCMIDPN ---
Assessment/Plan: Assessment/Plan: * Left upper extremity/left lower extremity weakness with acute EBV: Suspect weakness related to myelitis (MRIs normal however) versus mononeuritis multiplex associated with acute EBV infection. Neurology notes reviewed regarding new onset of twitching which does not appear related to seizures. Will continue IV acyclovir for another 24 hr with repeat assessment tomorrow to determine if any improvement noted in the setting of acyclovir. Meningoencephalitis CSF panel at [facility] is negative for organisms. EBV PCR in CSF is pending. Continue IV hydration and monitoring of creatinine while on high-dose acyclovir. * Elevated LFTs: Likely related to acute EBV. Care coordinated with Dr. Vieyra and Dr. Young. 01/02/19 11:07 01/02/19 11:10 01/02/19 11:13 Subjective: Patient developed twitching of left upper extremity after receiving high-dose Solu-Medrol last p.m.. Symptom onset predated use of acyclovir. Patient notes twitching in left hand and upper arm. Discussion with patient's friend notes this is not present when patient is asleep. Continues to have weakness in the left upper and lower extremity. Objective: Vital Signs Temp Pulse Resp BP Pulse Ox 36.6 C 78 16 109/60 99 01/02/19 08:22 01/02/19 08:22 01/02/19 08:22 01/02/19 08:22 01/02/19 08:22 Laboratory Results 01/02/19 04:38 01/01/19 01/02/19 01/03/19 05:59 05:59 05:59 Intake Total 800 Output Total 1600 650 Balance -1600 150 CSF meningoencephalitis panel no organisms CSF EBV PCR pending Acyclovir # 1 Status post Solu-Medrol 500 mg IV x1 01/01/2019 Prednisone 60 mg orally daily # 1 - Physical Exam General Appearance: no apparent distress, non-toxic, other (Sleepy but arousable ) EENT: No scleral icterus, No conjunctival petechiae Respiratory: lungs clear, No respiratory distress Neck: No meningismus Cardiac/Chest: regular rate, rhythm Extremities: No inflammation Abdomen: non-tender, No distended Neuro/Psych: motor weakness (Overall strength improved in left upper and left lower extremity but remains weak), other (Intermittent twitches in left hand which were noted after patient awoken from sleep) - Time Spent With Patient Time Spent with Patient: greater than 35 minutes Time Spent with Patient: Greater than 35 minutes spent on this patients care, greater than 50% of time spent counseling, educating, and coordinating care regarding the above mentioned plan. ICD10 Worksheet Patient Problems: Problems Problem Status Onset Dizziness Acute Left leg weakness Acute
[2019-01-02] MEDS: oxyCODONE IR 5 MG TAB PO PRN (11:28)
[2019-01-02] MEDS: predniSONE 20 MG TAB PO SCH (11:29)
--- NOTE | 2019-01-02 11:54 | HOSPPROG ---
Hospitalist Progress Note Assessment/Plan: Healthy 23-year-old with recent EBV infection admitted with LUE and LLE weakness and pain. Evaluation has been unremarkable so far with normal MRI of her brain, and spine. Discussed with Neurology and ID. # acute left upper and lower extremity weakness associated with some neuropathic pain. Unclear etiology although likely related to recent viral illness and possible autoimmune reaction. Evaluation negative so far. Guillain [place] seems less likely with normal CSF protein and unilateral symptoms. LP reassuring, [facility]. Also EBV PCR on CSF pending. * complete at least 48 hrs IV acyclovir per ID # LUE contractures - d/w neuro who doubts seizure activity, does not occur while she is sleeping outpt emg planned, currently scheduled for 01/03 at 3 pm prn valium has been helpful, will change this to po from IV # neuropathic pain left upper extremity cont gabapentin # lymphocytosis with mild neutropenia - likely related to EBV infection however patient does have a family history of lymphoma. Onc consult appreciated. flow cytometry added to CSF studies outpt f/u with heme/onc # recent EBV infection with elevated LFTs, trending down # dispo - cont inpt for ongoing IV acyclovir, possible d/c tomorrow prior to outpt neurology appt at 3 pm Subjective: Pt is sleepy, appears a bit drug affected, just received IV Valium. She still feels weak on the left side. No fevers/chills. Taking po well. Objective: Vital Signs Temp Pulse Resp BP Pulse Ox 36.8 C 85 16 96/55 L 99 01/02/19 11:41 01/02/19 11:41 01/02/19 11:41 01/02/19 11:41 01/02/19 11:41 Laboratory Results 01/02/19 04:38 01/01/19 01/02/19 01/03/19 05:59 05:59 05:59 Intake Total 800 Output Total 1600 650 Balance -1600 150 PT 13.6 SEC (12.0-15.0) 01/01/19 10:15 INR 1.08 (0.83-1.16) 01/01/19 10:15 - Physical Exam Constitutional: no apparent distress Eyes: PERRL Ears, Nose, Mouth, Throat: moist mucous membranes Cardiovascular: regular rate and rhythym Respiratory: no respiratory distress Gastrointestinal: normoactive bowel sounds, soft, non-tender abdomen Skin: warm Musculoskeletal: other (LLE and LUE weakness 4/5) Neurologic: AAOx3 Psychiatric: interacting appropriately ICD10 Worksheet Patient Problems: Problems Problem Status Onset Dizziness Acute Left leg weakness Acute
[2019-01-02] MEDS ORDERED: DIAZEPAM 5 MG TAB PO PRN (13:48)
[2019-01-02] MEDS: DIAZEPAM 5 MG TAB PO PRN (18:52)
[2019-01-02] MEDS ORDERED: CALCIUM CARBONATE 500 MG CHEWABLE TAB PO PRN (20:17)
[2019-01-02] MEDS ORDERED: LACTULOSE 20 GM/30 ML UDCUP PO PRN (20:19)
[2019-01-02] MEDS ORDERED: MAGNESIUM HYDROXIDE 30 ML UDCUP PO PRN (20:19)
[2019-01-02] MEDS ORDERED: POLYETHYLENE GLYCOL 3350 17 GM PKT PO PRN (20:19)
[2019-01-02] MEDS ORDERED: BISACODYL 10 MG SUPP PR PRN (20:19)
[2019-01-02] MEDS: GABAPENTIN 300 MG CAP PO SCH (20:49)
[2019-01-02] MEDS: SENNOSIDES/DOCUSATE SODIUM TAB PO SCH (20:49)
[2019-01-03] MEDS: ACYCLOVIR 700 MG in D5W 100 ML IV SCH ×2 (00:53→09:03)
[2019-01-03 05:06] LABS: PLATELET COUNT 180 10^3/uL (150-400)
[2019-01-03] MEDS: oxyCODONE IR 5 MG TAB PO PRN (05:27)
[2019-01-03] MEDS: DIAZEPAM 5 MG TAB PO PRN ×2 (05:27→10:12)
[2019-01-03] MEDS: GABAPENTIN 300 MG CAP PO SCH (09:03)
[2019-01-03] MEDS: SENNOSIDES/DOCUSATE SODIUM TAB PO SCH (09:03)
[2019-01-03] MEDS: predniSONE 20 MG TAB PO SCH (09:03)
[2019-01-03] MEDS: NS 1,000 ML IV SCH ×2 (09:03→20:14)
--- NOTE | 2019-01-03 10:02 | NEUROPROG ---
Assessment: [id number] - Neurology Consult: - CC: F/U for left arm/leg weakness - Narrative Summary: 12/31/18: Pt with recent diagnosis of viral illness felt to be mono for 3-4 weeks when on 12/31/18 she noted left shoulder pain radiating into her left hand. She felt dizzy so called EMS. In the ER she became aware of left leg weakness. Head CT, CTA head/neck, brain MRI wo, and C/T/L MRI wwo all essentially unremarkable for cause. Brain MRI showed benign appearing arachnoid cyst and cervical imaging did show some cervical adenopathy which could be from her recent [place] infection. I initially saw pt on 12/31/18. Neurologic exam showed left arm and leg weakness but otherwise normal exam with preserved reflexes. It seemed her acute left arm and leg weakness may be a mild form of Guillain [place] syndrome (acute demyelinating inflammatory polyneuropathy) or post-viral myopathy. I will ask ID to evaluate for any active infection as well as obtain spinal tap looking for abnormalities that could help diagnosis Guillain [place] Syndrome. If, after spinal tap, symptoms are felt most consistent with Guillain [place] Syndrome then will likely recommend course of IVIG. - F/U 01/01/19. CK wnl. Left arm/leg weakness unchanged from yesterday. Will proceed with spinal tap and have hospitalist touch base with ID and hematology to ensure they do not think any additional testing is needed. Based on spinal tap results and pts weakness tomorrow morning I will consider whether or not to proceed with 5 day course of IVIG for suspected atypical Guillain [place] Syndrome. - F/U 01/02/19. Spinal tap with unremarkable labs. Pts symptoms and clinical picture did not fit Guillain [place] Syndrome so I suspect it is more likely some form of autoimmune weakness from recent Wol[place] infection. Her exam shows give- way weakness in left arm and leg so weakness may also be due to poor effort from underlying fatigue from Wolfe illness. Pt given IV Solumedrol 500 mg on 01/01. Later in the evening of 01/01/19 pt developed anxiety and motor spasms that seemed to resolve when she relaxed and was given ativan 0.5. Pt had been on gabapentin that has anti-seizure properties and was fully awake so seizures seems very unlikely. Most likely she had anxiety to explain motor spasms. Her friend at bedside reported spasms not present in sleep and seem intermittent. I will recommend prednisone 60 mg for 7 days to treat possible autoimmune weakness. Pt can f/u with me after hospital discharge to get EMG/NCS of left arm/leg to further evaluate her symptom cause. If her spasms of left arm/leg worsen or seem more consistent with seizures then we can always consider transfer to [facility] for continuous EEG monitoring. - HPI: F/U 01/03/19. Pt still has intermittent twitching of left arm at times. She also has variable giveway weakness in both legs and left arm (normal strength at times then weak at times). Otherwise no complaints. I suspect pt is likely having an acute stress reaction to explain her symptoms of twitching. The variable weakness is likely from a combination of acute stress and possibly some post-viral autoimmune weakness. Complete 7 day course of oral steroids and f/u in neurology clinic after discharge for EMG/NCS of left arm/leg. Pt informed we can always offer her a second opinion at [facility] if she would like. - PMHx: migraines - SHx: from [place] FHx: lymphoma, DM, HTN, BRCA - ROS: Pt denied acute fever, total vision loss, active severe chest pain, respiratory failure, total body severe rash, total bowel/bladder incontinence, psychosis, active seizures, or active bleeding - Labs: 12/31/18- CBC WBC 12.83H, Chem COw 21L GLuc 102H, LFT AST 102H ALT 170H Alk Phos 167H Tot Prot 9.3H 01/01/19- CSF clear/colorless, WBC 0, RBC 0, Prot 37, Gluc 57, Gram stain negative - Rads: 12/31/18- Head CT and CTA head/neck: unremarkable 12/31/18- Brain MRI wo con: benign appearing posterior fossa arachnoid cyst, no acute changes, lymphadenitis (I personally visualized the images on 12/31/18) 12/31/18- C/T/L MRI wwo: relatively unremarkable, mild degen changes in thoracic region - Assessment: 1. Acute onset of left arm and leg weakness 3-4 weeks after infectious mononucleosis: Concern for possible autoimmune response to recent viral illness causing left arm/leg weakness versus acute stress response. - 2. Twitching in left arm/leg: [place] to be from anxiety. Pt on anti-seizure medication (gabapentin) with symptoms only intermittently present when she is awake and occurring without any impairment of consciousness so I do not suspect seizures. - 3. [place] nucelsosis - Plan: - Recommend Prednisone 60 mg qd x 7 days (started on 01/02/19) - Continue gabapentin 300 mg bid for anxiety, pain control, and to cover any possibility of seizures - F/U with neurology after hospital discharge for left arm/leg EMG/NCS at 3 pm on 01/03/19 - Agree with ID and hematology recs - 35 min spent with patient, majority of time spent counseling on condition and treatment plans Objective: Vital Signs Temp Pulse Resp BP Pulse Ox 36.6 C 104 H 16 103/58 L 98 01/03/19 08:17 01/03/19 08:17 01/03/19 08:17 01/03/19 08:17 01/03/19 08:17 Laboratory Results 01/03/19 04:22 01/03/19 04:22 01/02/19 01/03/19 01/04/19 05:59 05:59 05:59 Intake Total 2511 Output Total 1600 1650 900 Balance -1600 861 -900 PT 13.6 SEC (12.0-15.0) 01/01/19 10:15 INR 1.08 (0.83-1.16) 01/01/19 10:15 Allergies/Adverse Reactions: No Known Allergies Allergy (Verified 12/28/18 11:33)
--- NOTE | 2019-01-03 13:52 | ASMTCMCOM ---
CM Note CM Note Notes: Pt discussed in rounds. Pt continues to feel dizzy which is relieved with Valium. Pt resting in bed most of the time. I asked MD to order OT & PT consult/Therapy. IV antibiotic to be changed to oral when able. Pt with good family support. Will likely discharge home Independently when medically cleared. CM available should needs arise. Plan: Home independently w/ family Date Signed: 01/03/2019 01:50 PM Electronically Signed By:Fannie Luna
--- NOTE | 2019-01-03 15:29 | HOSPPROG ---
Hospitalist Progress Note Assessment/Plan: Healthy 23-year-old with recent EBV infection admitted with LUE and LLE weakness and pain. Evaluation has been unremarkable so far with normal MRI of her brain, and spine. CSF studies also unremarkable. Neurology and ID consulting #Acute left sided weakness and neuropathy: Variable weakness on exam. 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 - Neurology recommending steroids, currently on pred 60 qd x7 days - Completing 48 hours of IV acyclovir this evening per ID. Considering PO valtrex after completion of IV therapies - Planning on outpatient EMG #Left arm twitching: Very unlikely to be seizure. As above, suspect stress response #Dizziness: Not c/w vertigo. Suspect med side effect - Holding gabapentin and valium to see if improves - PT/OT #Lymphocytosis: Likely related to EBV. - Onc consulted, added on flow cytometry to CSF studies, outpt heme/onc f/u #Recent EBV infection with elevated LFTs: LFTs improving Code: full Dispo: Remain inpatient, unsafe for discharge as unable to safely ambulate Subjective: Severe dizziness today. Unable to ambulate. Some nausea. No room spinningn sensation. Does have some ear ringing in left ear. Dizziness not assoicated with head movement. Objective: Vital Signs Temp Pulse Resp BP Pulse Ox 36.8 C 93 16 115/73 96 01/03/19 11:21 01/03/19 11:21 01/03/19 11:21 01/03/19 11:21 01/03/19 11:21 Laboratory Results 01/03/19 04:22 01/03/19 04:22 01/02/19 01/03/19 01/04/19 05:59 05:59 05:59 Intake Total 2511 Output Total 1600 1650 900 Balance -1600 861 -900 PT 13.6 SEC (12.0-15.0) 01/01/19 10:15 INR 1.08 (0.83-1.16) 01/01/19 10:15 - Physical Exam Constitutional: appears nourished, uncomfortable Eyes: PERRL Ears, Nose, Mouth, Throat: moist mucous membranes, hearing normal, ears appear normal, no oral mucosal ulcers Cardiovascular: regular rate and rhythym, no murmur, rub, or gallop Respiratory: no respiratory distress, no rales or rhonchi, clear to auscultation Gastrointestinal: normoactive bowel sounds, soft, non-tender abdomen, no palpable masses Genitourinary: no bladder fullness, no bladder tenderness, no renal bruits Skin: no rashes or abrasions, no fluctuance, no induration Neurologic: AAOx3, weakness (LLE, LUE weakness is distractable), CN II-XII Intact, other (normal finger to nose, normal speech) Psychiatric: interacting appropriately, flat affect ICD10 Worksheet Patient Problems: Problems Problem Status Onset Dizziness Acute Left leg weakness Acute
--- NOTE | 2019-01-03 16:39 | SOAPPROG ---
SOAP Progress Note Assessment/Plan: Assessment: 1) Infectious mononucleosis 2) Neurologic symptoms likely related to #1 3) Reactive lymphadenopathy / splenomegaly secondary to #1 4) Lymphocytosis secondary to #1 Plan: Her CSF cytology is negative for malignant cells. Peripheral blood flow cytometry demonstrates a reactive lymphocyte population with no evidence of a clonal process. U/S neck demonstrates reactive, benign appearing lymphadenopathy. She has mild/ moderate splenomegaly which can be associated with EBV infection. I reviewed these results with her. There is no evidence of lymphoma. Her lymphocytosis and lymphadenopathy appear reactive and related to EBV infection. No further workup planned for now. Plan outpatient follow up with Dr. Gonzalez at [facility] once discharged to ensure resolution. Plan discussed with patient. Her questions were answered. Treatment of her EBV infection and associated neurologic symptoms deferred to ID and Neurology. 01/03/19 16:33 01/03/19 16:40 01/03/19 16:42 Subjective: Still with left sided weakness and Left arm twitching. Friend at bedside. Objective: Vital Signs Temp Pulse Resp BP Pulse Ox 36.9 C 87 16 110/87 H 96 01/03/19 15:28 01/03/19 15:28 01/03/19 15:28 01/03/19 15:28 01/03/19 15:28 Laboratory Results 01/03/19 04:22 01/03/19 04:22 01/02/19 01/03/19 01/04/19 05:59 05:59 05:59 Intake Total 2511 Output Total 1600 1650 1100 Balance -1600 861 -1100 PT 13.6 SEC (12.0-15.0) 01/01/19 10:15 INR 1.08 (0.83-1.16) 01/01/19 10:15 - Time Spent With Patient Time Spent With Patient: 15 minutes Physical Exam - Physical Exam General Appearance: alert, no apparent distress Neuro/Psych: alert, normal mood/affect, oriented x 3, other (Spontaneous Left arm twitching noted) ICD10 Worksheet Patient Problems: Problems Problem Status Onset Dizziness Acute Left leg weakness Acute
--- NOTE | 2019-01-03 17:55 | PCMIDPN ---
Assessment/Plan: Assessment/Plan: * Left upper extremity/left lower extremity weakness with acute EBV: Suspect weakness related to myelitis (MRIs normal however) versus mononeuritis multiplex associated with acute EBV infection. Also could be post viral inflammatory response. CSF is negative for EBV qualitatively by PCR. Based on this finding, will discontinue acyclovir as unclear will have added benefit. Continues on prednisone as outlined by Neurology with hopes will blunt inflammatory response. * Elevated LFTs: Likely related to acute EBV. Care coordinated with Dr. Rosas and staff development coordinator rn. 01/03/19 17:52 01/03/19 17:56 Subjective: Patient with persistent left upper and lower extremity weakness. Left upper extremity weakness is less prominent. Continues to have episodic twitching. This is now present on the right side. Objective: Vital Signs Temp Pulse Resp BP Pulse Ox 36.9 C 87 16 110/87 H 96 01/03/19 15:28 01/03/19 15:28 01/03/19 15:28 01/03/19 15:28 01/03/19 15:28 Laboratory Results 01/03/19 04:22 01/03/19 04:22 01/02/19 01/03/19 01/04/19 05:59 05:59 05:59 Intake Total 2511 1200 Output Total 1600 1650 1100 Balance -1600 861 100 Acyclovir # 2 CSF EBV PCR by qualitative assay negative CSF culture no growth CSF cytology no malignant cells CSF meningoencephalitis panel by PCR no organisms - Physical Exam General Appearance: alert, no apparent distress EENT: No scleral icterus, No thrush Respiratory: lungs clear, No respiratory distress Cardiac/Chest: regular rate, rhythm Abdomen: non-tender, No distended Skin: No rash Neuro/Psych: motor weakness (Left upper extremity with improved motor strength; left lower extremity remains 3/5) - Time Spent With Patient Time Spent with Patient: greater than 25 minutes Time Spent with Patient: Greater than 25 minutes spent on this patients care, greater than 50% of time spent counseling, educating, and coordinating care regarding the above mentioned plan. ICD10 Worksheet Patient Problems: Problems Problem Status Onset Dizziness Acute Left leg weakness Acute
[2019-01-04] MEDS: SENNOSIDES/DOCUSATE SODIUM TAB PO SCH ×3 (02:48→10:02)
[2019-01-04 05:11] LABS: PLATELET COUNT 184 10^3/uL (150-400)
[2019-01-04] MEDS: NS 1,000 ML IV SCH (05:49)
[2019-01-04] MEDS ORDERED: LIDOCAINE 4%/MENTHOL 1% PATCH TD SCH (09:00)
--- NOTE | 2019-01-04 09:02 | NEUROPROG ---
Assessment: [id number] - Neurology Consult: - CC: F/U for left arm/leg weakness - Narrative Summary: 12/31/18: Pt with recent diagnosis of viral illness felt to be mono for 3-4 weeks when on 12/31/18 she noted left shoulder pain radiating into her left hand. She felt dizzy so called EMS. In the ER she became aware of left leg weakness. Head CT, CTA head/neck, brain MRI wo, and C/T/L MRI wwo all essentially unremarkable for cause. Brain MRI showed benign appearing arachnoid cyst and cervical imaging did show some cervical adenopathy which could be from her recent [place] infection. I initially saw pt on 12/31/18. Neurologic exam showed left arm and leg weakness but otherwise normal exam with preserved reflexes. 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 I will ask ID to evaluate for any active infection as well as obtain spinal tap looking for abnormalities that could help diagnosis Guillain [place] Syndrome. If, after spinal tap, symptoms are felt most consistent with Guillain [place] Syndrome then will likely recommend course of IVIG. - F/U 01/01/19. CK wnl. Left arm/leg weakness unchanged from yesterday. Will proceed with spinal tap and have hospitalist touch base with ID and hematology to ensure they do not think any additional testing is needed. 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 - F/U 01/02/19. Spinal tap with unremarkable labs. Pts symptoms and clinical picture did not fit Guillain [place] Syndrome so I suspect it is more likely some form of autoimmune weakness from recent [place] infection. Her exam shows give- way weakness in left arm and leg so weakness may also be due to poor effort from underlying fatigue from [place] illness. Pt given IV Solumedrol 500 mg on 01/01. Later in the evening of 01/01/19 pt developed anxiety and motor spasms that seemed to resolve when she relaxed and was given ativan 0.5. Pt had been on gabapentin that has anti-seizure properties and was fully awake so seizures seems very unlikely. Most likely she had anxiety to explain motor spasms. Her friend at bedside reported spasms not present in sleep and seem intermittent. I will recommend prednisone 60 mg for 7 days to treat possible autoimmune weakness. Pt can f/u with me after hospital discharge to get EMG/NCS of left arm/leg to further evaluate her symptom cause. If her spasms of left arm/leg worsen or seem more consistent with seizures then we can always consider transfer to [facility] for continuous EEG monitoring. - HPI: F/U 01/03/19. Pt still has intermittent twitching of left arm at times. She also has variable giveway weakness in both legs and left arm (normal strength at times then weak at times). Otherwise no complaints. I suspect pt is likely having an acute stress reaction to explain her symptoms of twitching. The variable weakness is likely from a combination of acute stress and possibly some post-viral autoimmune weakness. Complete 7 day course of oral steroids and f/u in neurology clinic after discharge for EMG/NCS of left arm/leg. Pt informed we can always offer her a second opinion at [facility] if she would like. - HPI: F/U 01/04/19. No new events, pt stable. Pt feels ready to discharge when possible. - PMHx: migraines - SHx: from [place] FHx: lymphoma, DM, HTN, BRCA - ROS: Pt denied acute fever, total vision loss, active severe chest pain, respiratory failure, total body severe rash, total bowel/bladder incontinence, psychosis, active seizures, or active bleeding - Labs: 12/31/18- CBC WBC 12.83H, Chem COw 21L GLuc 102H, LFT AST 102H ALT 170H Alk Phos 167H Tot Prot 9.3H 01/01/19- CSF clear/colorless, WBC 0, RBC 0, Prot 37, Gluc 57, Gram stain negative - Rads: 12/31/18- Head CT and CTA head/neck: unremarkable 12/31/18- Brain MRI wo con: benign appearing posterior fossa arachnoid cyst, no acute changes, lymphadenitis 12/31/18- C/T/L MRI wwo: relatively unremarkable, mild degen changes in thoracic region - Assessment: 1. Acute onset of left arm and leg weakness 3-4 weeks after infectious mononucleosis: Concern for possible autoimmune response to recent viral illness causing left arm/leg weakness versus acute stress response. - 2. Twitching in left arm/leg: [place] to be from anxiety. Pt on anti-seizure medication (gabapentin) with symptoms only intermittently present when she is awake and occurring without any impairment of consciousness so I do not suspect seizures. - 3. [place] nucelsosis - Plan: - Recommend Prednisone 60 mg qd x 7 days (started on 01/02/19) - Continue gabapentin 300 mg bid for anxiety, pain control, and to cover any possibility of seizures - F/U with neurology after hospital discharge for left arm/leg EMG/NCS - Agree with ID and hematology recs - 35 min spent with patient, majority of time spent counseling on condition and treatment plans as well as prognosis Objective: Vital Signs Temp Pulse Resp BP Pulse Ox 36.4 C 72 16 97/61 L 97 01/04/19 08:00 01/04/19 08:00 01/04/19 08:00 01/04/19 08:00 01/04/19 08:00 Laboratory Results 01/04/19 04:28 01/03/19 04:22 01/03/19 01/04/19 01/05/19 05:59 05:59 05:59 Intake Total 2511 3781 Output Total 1650 1500 Balance 861 2281 PT 13.6 SEC (12.0-15.0) 01/01/19 10:15 INR 1.08 (0.83-1.16) 01/01/19 10:15 Allergies/Adverse Reactions: No Known Allergies Allergy (Verified 12/28/18 11:33)
[2019-01-04] MEDS: predniSONE 20 MG TAB PO SCH (09:57)
[2019-01-04] MEDS ORDERED: MECLIZINE HCL 25 MG TAB PO PRN (12:49)
--- NOTE | 2019-01-04 15:02 | PDIAF ---
- Diagnosis Code Status: Full Code - Medication Management Discharge Medications: electronically signed and located in the Home Medication List. PICC Care - Routine: N/A - Orders Services needed: Physical Therapy, Occupational Therapy Diet Recommendation: no restrictions on diet Diet Texture: Regular Texture Diet Additional Instructions: We would like you to continue the following medications: 1. Prednisone 60mg daily through 01/08/2019 to complete 7 days. 2. Gabapentin 300mg twice daily. 3. Meclizine as needed for dizziness. 4. Lidocaine patch as needed for pain. Dr Young from neurology would like to see you in follow up to obtain an EMG of your left arm and leg. - Follow Up Care Current Providers and Referrals: Barney Young DO [Medical Doctor] - (follow up after inpatient rehab stay) NONE *PRIMARY CARE P,. [Primary Care Provider] - As per Instructions
--- NOTE | 2019-01-04 15:02 | PDDCSUM ---
Discharge Summary Discharge Summary: Date of Admission: 12/31/2018 Date of Discharge: 01/04/2019 Disposition: inpatient rehab Consultants: infectious disease, neurology, hematology/oncology Studies/Procedures: 1. MRI of cervical, thoracic, and lumbar spine 2. Brain MRI 3. Lumbar puncture Discharge Diagnoses: 1. Infectious mononucleosis 2. Left upper and lower extremity variable weakness 3. Intermittent left upper extremity twitching 4. Non-vertiginous dizziness 5. Reactive lymphadenopathy and splenomegaly, likely related to #1 6. Lymphocytosis, likely related to #1 7. Abnormal LFTs, likely related to #1 Brief Hospital Course: Healthy 23-year-old with recent EBV infection (had + titers several weeks ago) admitted with acute onset LUE and LLE weakness and pain. Her neurologic exam has been variable - she has intermittent left arm and leg weakness and left arm twitching. She underwent MRI imaging of her brain and spine which were unremarkable. CSF fluid was sampled; there were 0 WBCs and CSF was negative for EBV qualitatively by PCR. ID and neurology did see the patient in consultation. She was briefly on IV acyclovir but this was discontinued after CSF testing returned. Neurology did not think that her symptoms were consistent with seizures. Ultimately, it was felt that her symptoms (weakness, twitching) are related to an acute stress reaction (conversion disorder) vs post-viral inflammatory response (such as mononeuritis multiplex related to her EBV). She was started on oral prednisone and is discharged to complete a 7 day course. She should follow up with neurology for an EMG. Physical and occupational therapy recommended inpatient rehab and she was agreeable to this. She was accepted at the inpatient rehab at the [facility]. Hematology was also consulted given her lymphocytosis, splenomegaly and lymphadenopathy on imaging. Her CSF cytology was negative for malignant cells. Her peripheral blood flow cytometry showed a reactive lymphocyte population but no e/o a clonal process. All of these findings were consistent with EBV infection and not lymphoma. It is recommended that she follow up with Dr Gonzalez at [facility] after inpatient rehab stay. Medications: Please refer to EMR for complete list. I continued the following medications: 1. Gabapentin 300mg BID 2. Meclizine 25mg q6h PRN 3. Prednisone 60mg QD x4 more days 4. Lidocaine patch Follow Up Plan: 1. Needs neurology follow (Dr Barney Young) up after inpatient rehab stay for left arm and leg EMG 2. Follow up at [facility] with Dr Gonzalez Physical Exam: Vitals reviewed, afebrile. Alert and oriented, intermittent left shoulder/arm twitching, intermittent weakness in left arm and leg but at times demonstrates full strength, rrr, lungs clear, abdomen soft, no rashes.
--- NOTE | 2019-01-04 15:22 | ASMTCMCOM ---
CM Note CM Note Notes: Met with Pt and discussed in Rounds. PT & OT recommend SNF/IP Rehab. Pt is interested in a Rehab in [place] so, I provided her with the [facility] Blue [facility] to review and gave her information on [facility] IP Rehab. Pt was interested in [facility] Rehab and she was accepted per Purnima Newman ([facility] IP Adm Coordiator). Pt has been cleared medically for discharge and will transfer in the next half hr. CM Available for needs. Plan: Discharged to [facility] IP Rehab Date Signed: 01/04/2019 03:21 PM Electronically Signed By:Fannie Luna
--- NOTE | 2019-01-04 15:23 | ASMTLACE ---
[facility] Length of stay for Answers: 3 days current admission # of Emergency department Answers: 1-2 visits in the last 6 months Score: 4 Date Signed: 01/04/2019 03:22 PM Electronically Signed By:Fannie Luna
[2019-01-04 15:34] VITALS: BP 111/81
[2019-01-04] MEDS ORDERED: PATCH REMOVAL 1 EA PATCH TD SCH (21:00)
--- NOTE | 2019-01-08 17:59 | CPEKG ---
Test Reason : OPEN Blood Pressure : / mmHG Vent. Rate : 083 BPM Atrial Rate : 086 BPM P-R Int : 124 ms QRS Dur : 089 ms QT Int : 374 ms P-R-T Axes : 016 057 012 degrees QTc Int : 440 ms Sinus rhythm Nonspecific T abnormalities, anterior leads Confirmed by Barry Reich ([id number] on 01/08/2019 5:58:29 PM Referred By: Edda Fernandez Confirmed By:Barry Reich
== END 2019-01-04 15:42 | DRG 57 ==
LOC: EDUNIT# → F1N 18:12 → OBSVTOIN 01-01 16:05
PROVIDERS: ADMIT Internal Medicine; ATTEND Internal Medicine
PROC: 009U3ZX Drainage of Spinal Canal, Percutaneous Approach, Diagnostic (ICD-10-PCS; principal; 2019-01-01)
DX: G81.94 Hemiplegia, unspecified affecting left nondominant side (principal); F44.4 Conversion disorder with motor symptom or deficit; R25.3 Fasciculation; B94.8 Sequelae of other specified infectious and parasitic diseases; E86.9 Volume depletion, unspecified
CPT/HCPCS: 70551-PN; 97112-GP; 97116-GP; 97162-GP; 97166-GO; 97530-GO; 97530-GP; 97535-GO; A9585; G0378; J0133; J2060; J2930; J3360; J7512; Q9967

== ENCOUNTER 2019-01-04 15:00 | Inpatient (IN) | payer OTHER ==
[2019-01-04] MEDS ORDERED: MECLIZINE HCL 25 MG TAB PO PRN (16:52)
[2019-01-04] MEDS ORDERED: BISACODYL 10 MG SUPP PR PRN (16:55)
--- NOTE | 2019-01-04 17:27 | PDOREHIP ---
Admission [facility] - Admission - 3 Day Assessment Period Admission Date/Day 1: 01/04/19 Day 2: 01/05/19 Day 3: 01/06/19 - Active Diagnoses Comorbidities and Co-existing Conditions at Admission: 96372. None of the Above - Skin Conditions Unhealed Pressure Ulcer (1 or more/Stage 1 or >)-Admission: 0. No # Stage 1 Pressure Ulcers-Admission: 0 # Stage 2 Pressure Ulcers-Admission: 0 # Stage 3 Pressure Ulcers-Admission: 0 # Stage 4 Pressure Ulcers-Admission: 0 # Unstageable Pressure Ulcers (Non-remove Dress)-Admission: 0 # Unstageable Pressure Ulcers (Slough/Eschar)-Admission: 0 # Unstageable Pressure Ulcers (Deep Tissue Injury)-Admission: 0
--- NOTE | 2019-01-04 18:10 | GHP ---
[f rep st] HISTORY AND PHYSICAL POST ADMISSION PHYSICIAN EVALUATION AND REHABILITATION TREATMENT PLAN DATE OF ADMISSION: 01/04/2019 DATE OF EVALUATION: 01/04/2019 TIME OF EVALUATION: 1640 REFERRING FACILITY: [facility]. REFERRING PHYSICIAN: Dr. Rosas IMPAIRMENT GROUP: 3.9. DATE OF ONSET: 12/31/2018. REFERRING PHYSICIAN: Dr. Rosas. CONSULTING PHYSICIANS: Neurologist, Dr. Young; infectious disease, Dr. Ly; and hematology/oncology, Dr. Alonso. 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 ETIOLOGIC DIAGNOSIS: Other neurologic condition. HISTORY OF PRESENT ILLNESS: This patient came to [facility] on with acute onset of dizziness and weakness. She had a recent diagnosis 3 to 4 weeks previously of Tone-Hutton virus mononucleosis. She had evaluation including brain MRI, spinal MRI, head CT, and lumbar puncture. All these were negative for any active processes. Briefly treated with acyclovir until her CSF returned negative. 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 She was treated with high-dose IV steroids, started on a 7- day course of prednisone. Gabapentin was begun for twitching of the left shoulder, as well as shooting neuropathic pain. She was requiring assistance for mobility and activities of daily living, and so she was transferred to inpatient rehabilitation. Other labs and studies during her stay, CBC initially showed leukocytosis with a white blood cell count of 12.83. This was predominantly lymphocytes with an absolute lymphocyte count of 9.37. She continued to have elevated lymphocytes, though her white blood cell count improved. She developed anemia during her stay, and on the day of discharge, hemoglobin was 11.4 and hematocrit was 35. She had a low MCV. Coagulation studies were normal. Serum chemistries were overall normal. She had a slightly low carbon dioxide. She had elevated AST, ALT, and GGT when she was first evaluated. AST and ALT improved. The day before discharge, AST was normal at 34 and ALT was mildly elevated at 83. Flow cytometry was done and there were no clonal population among the lymphocytes. Lymphocytosis was considered reactive. PRECAUTIONS: She is a fall risk. ACTIVE COMORBIDITIES: She has the tier 3 comorbidity of hemiparesis, left- sided weakness. She otherwise has no active tier 1, tier 2, or tier 3 comorbidities. PAST MEDICAL HISTORY: 1. Infectious mononucleosis. 2. Nosebleeds. 3. Migraine headaches. PAST SURGICAL HISTORY: She has not had surgery. MEDICATIONS: Prior to admission, she was taking no medications. Admission medications: 1. Gabapentin 300 mg p.o. b.i.d. 2. Lidocaine patch daily. 3. Meclizine 25 mg p.o. b.i.d. p.r.n. 4. Prednisone 60 mg p.o. daily through 01/08/2019. PSYCHOSOCIAL HISTORY: She lives alone in a 2nd floor apartment. There is an elevator to enter. 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 She is a nonsmoker and does not use alcohol. FAMILY HISTORY: Noncontributory. REVIEW OF SYSTEMS: She continues to feel some dizziness. She describes it more as a feeling of imbalance. She denies vertigo. She denies double vision or other vision abnormality. She denies difficulty swallowing. She has reduced sensation in the left leg, in the left arm, and she has intermittent shooting pains. She has weakness in the left arm. She denies abdominal pain. She denies cough or dyspnea. She denies chest pain or palpitations. She denies vomiting, constipation, or diarrhea. She had a bowel movement yesterday after a suppository but had not had a bowel for approximately 11 days previously. She denies any urinary frequency, dysuria, or other urinary _ difficulties. She is sleeping well. Otherwise, a 10-point review of systems is negative. PHYSICAL EXAM: VITAL SIGNS: Blood pressure is 122/75, heart rate is 75, respiratory rate is 18, oxygen saturation is 97% on room air. Temperature is 36.6. Her weight is 68.9 kg for a body mass index of 23.8. GENERAL: This is a well-nourished, well-developed woman lying in bed, dressed in street clothes, cooperative, and in no acute distress. HEENT: Extraocular movements are intact. Pupils are equal, round, and reactive to light. Mucous membranes are moist. She has an uncrowded airway, Mallampati class 2. NECK: Supple. HEART : There is regular rate and rhythm with no murmurs, rubs or gallops. LUNGS: Clear to auscultation bilaterally. ABDOMEN: Soft, nontender, nondistended with normoactive bowel sounds. There is question of maybe a palpable spleen tip in the left upper quadrant. EXTREMITIES: There is no cyanosis, clubbing, or edema. Radial and dorsalis pedis pulses are 2+ bilaterally. NEUROLOGIC: She is alert and oriented x3. Cranial nerves 2 through 12 are grossly intact. She has weakness on the left side. Shoulder shrug is 4/5, deltoid is 4/5, triceps is 3/5, biceps is 3/5 to 4/5, hand regulatory compliance engineer is 3/5. On the left lower extremity, hip flexor is 3/5, quadriceps is 3/5, hamstring is 2/5, foot and great toe dorsiflexion is 4/5, and plantar flexion is 3/5. Sensation is diminished to light touch on the left lower extremity and left upper extremity. Deep tendon reflexes are 2+ bilaterally at the biceps, patellar, and Achilles tendons. CURRENT LEVEL OF FUNCTION: Per the preadmission screen, she was on a regular diet with regular texture and no difficulty with swallowing. Upper body dressing required moderate assistance and voice cues. Lower body dressing required maximal assist with cues. Toileting required minimal assist. She was continent of bladder and bowel. Bed mobility required standby assist with extra time to mobilize lower extremities. Transfers required minimal-to- moderate assist with voice cues. She was using a front-wheeled walker. Seated balance required minimal assist with voice cues. Standing balance required [id number] assist with voice cues. Endurance was fair. She was able to ambulate 12 feet x2 with minimal assist of 2 people. Communication and cognition were normal. On today's exam, there are no significant changes from the preadmission screen. 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 She has had extensive evaluation with normal cerebrospinal fluid and normal imaging of brain and spinal cord and labs only abnormal for a lymphocytosis and an anemia that likely presented after hydration , thus ruling out any other possible etiologies of weakness. There was mention of anxiety and possible conversion disorder, but to me, it appears to be convincingly a postviral autoimmune polyneuropathy. Malignancy-associated lymphocytosis was ruled out. She is otherwise medically stable and appropriate for inpatient rehabilitation. Her goal is to complete her rehabilitation stay and then return home with help from friends and supportive services if needed. For a safe discharge, she will need to achieve modified independence for activities of daily living and functional activities. She will need to have insight into her deficits to be safe with all functional tasks using any durable medical equipment she might need. She will have therapy with Physical Therapy and Occupational Therapy for 90 minutes per day for each discipline on 5 to 7 days of the week her expected duration of stay is 5 to 7 days. It is anticipated that upon discharge, she will continue to benefit from outpatient occupational and physical therapy. She may also benefit from home occupational physical therapies. PLAN: 1. Left upper and lower extremity weakness, most likely due to Tone-Hutton virus associated autoimmune polyneuropathy. Continue prednisone for total of 7 days. Evaluation and treatment per PT and OT. 2. Myoclonic twitching of the left shoulder. This is not interfering with her sleep and does not cause her significant discomfort. She is on a low dose of gabapentin which she reported initially caused her some sedation. Consider increasing gabapentin. 3. Feelings of dizziness. She has been discharged with an order for meclizine. As it is non-vertiginous, it is unclear to me whether meclizine will be effective . 4. Constipation while in the hospital which responded to suppository. I have ordered senna on a p.r.n. basis, as well as bisacodyl suppository p.r.n. 5. Prophylaxis. She is young and she has movement of the left lower extremity. She is low risk for deep venous thrombosis, especially if she is able to mobilize increasingly over the next several days. I will not prescribe pharmacologic prophylaxis. FOLLOWUP: Follow up with neurologist, Dr. Barney Young, as planned after discharge for EMG studies to fully characterize the nature of her polyneuropathy. She will also follow up at the [facility] enterprise infrastructure architect, Dr. Gonzalez, regarding the lymphocytosis which, however, appears to be resolving. /[id number]/MODL MTDD
[2019-01-04] MEDS: GABAPENTIN 300 MG CAP PO SCH (21:07)
[2019-01-04] MEDS: traMADol 50 MG TAB PO PRN (23:16)
[2019-01-05] MEDS: LIDOCAINE 4%/MENTHOL 1% PATCH TD SCH (08:31)
[2019-01-05] MEDS: GABAPENTIN 300 MG CAP PO SCH ×2 (08:31→22:01)
[2019-01-05] MEDS: predniSONE 20 MG TAB PO SCH (08:31)
--- NOTE | 2019-01-05 09:30 | SOAPPROG ---
SOAP Progress Note Assessment/Plan: Assessment: 1. Left upper and left lower extremity weakness. Admission diagnosis includes autoimmune polyneuropathy, possibly related to Tone-Hutton virus. During morning rounds she was noted to have at least antigravity strength in all 4 extremities. Sensory testing revealed normal sensation globally in upper and lower extremities although subjectively she reports tingling in the left hand and distal forearm which does not follow a peripheral nerve or nerve root distribution. Continue prednisone 60 mg q.day for 4 more days. She will have follow-up with neurologist Dr. Barney Young following discharge. 2. Left shoulder twitching. Possibly voluntary. Observed patient is sleeping and noted no twitching and this only became evident when she was awakened and after nursing mention this. Also, during exam patient was asked to sit up in bed to check lung bro and was observed to pull herself up into sitting position until I asked nursing to help hold her up while listening to lung bro and at that point patient collapsed trunk to the right. This is felt to be voluntary a most likely did not represent true core weakness. The possibility of a conversion disorder has been previously raised. Neuropsych consult on Monday is suggested. 3. Left sternal pain-normal exam. No complaints of shortness of breath or anginal like symptoms including neck pain, jaw pain or claudication. Will order EKG today 4. Constipation-noted during prior hospitalization. This apparently responded to 2 suppository. Senna and Dulcolax suppository p.r.n.. 5. Prophylaxis. Low risk for DVT, specially if she is able to increase mobilization over the next several days. No current pharmacological prophylaxis. Patient encouraged to ambulate at least 150 ft per day. 6. Diet-currently on regular diet. Has speech screen at 11:30 a.m. Today. 01/05/19 09:30 Subjective: She complains of some left anterior chest wall pain. Last p.m. Was contacted by nursing staff regarding left shoulder pain secondary to twitching and was phone ordered tramadol 100 mg Q 6. This morning she also reports tingling in the left foot, left hand and distal forearm in a non dermatomal, non nerve root specific pattern. Objective: Vital Signs Temp Pulse Resp BP Pulse Ox 36.6 C 67 18 97/63 L 97 01/05/19 08:00 01/05/19 08:00 01/05/19 08:00 01/05/19 08:00 01/05/19 08:00 01/04/19 01/05/19 01/06/19 05:59 05:59 06:59 Intake Total 400 Balance 400 Physical Exam - Physical Exam General Appearance: WD/WN, alert, no apparent distress Respiratory: lungs clear, normal breath sounds Cardiac/Chest: regular rate, rhythm, other (Left sternum tender to palpation), No edema Abdomen: normal bowel sounds, non-tender, soft Skin: warm/dry Extremities: No swelling (Upon entering patient's room, she was sleeping and no left shoulder twitching was noted. Upon awakening and once nurse entered room and mentioned previous left shoulder twitching, this restarted. Twitching noted to be a combination of shoulder elevation and protraction. No fasciculations. Normal range of motion left glenohumeral joint. 4/5 anterior and middle deltoid, biceps, brachioradialis, wrist and finger extensors.), No Sabrina's sign Neuro/Psych: other (No hyperesthesias or allodynia noted in upper lower extremities.) ICD10 Worksheet Patient Problems: Problems Problem Status Onset Dizziness Acute Left leg weakness Acute
[2019-01-05] MEDS ORDERED: ACETAMINOPHEN 500 MG TAB PO PRN (11:28)
[2019-01-05] MEDS: traMADol 50 MG TAB PO PRN (19:38)
--- NOTE | 2019-01-06 08:55 | SOAPPROG ---
SOAP Progress Note Assessment/Plan: Assessment: 1. Left upper and left lower extremity weakness. Admission diagnosis includes autoimmune polyneuropathy, possibly related to Tone-Hutton virus. Has left greater than right extremity weakness, most pronounced in left lower extremity but motor testing in both left upper and left lower extremity reveals ratcheting type weakness suggestive of possible non physiologic weakness. Continue prednisone 60 mg q.day for 4 more days. She will have follow-up with neurologist Dr. Barney Young following discharge. 2. Left shoulder twitching. No left shoulder twitching noted on 01/06 exam. Neuropsych consult on Monday is suggested. 3. Left sternal pain-normal exam. No complaints of left sternal pain on 01/06 exam. Therefore will defer EKG. 4. Constipation-noted during prior hospitalization. Nursing reports she has not had a bowel movement since 01/03. Will check med list to make sure she has p.r.n. Bowel meds 5. Prophylaxis. Low risk for DVT, specially if she is able to increase mobilization over the next several days. No current pharmacological prophylaxis. Patient encouraged to ambulate at least 150 ft per day. 6. Diet-currently on regular diet. Has speech screen at 11:30 a.m. Today. 7. Gait dysfunction-she is currently not ambulating and is wheelchair dependent but is able to perform some transfers. 01/06/19 08:56 Subjective: Complains of intermittent abdominal discomfort. Nursing reports no bowel movement since 01/03. Patient reports mild myalgias in both calves. Also reports mild left shoulder pain. Objective: Vital Signs Temp Pulse Resp BP Pulse Ox 36.3 C 77 15 102/75 96 01/05/19 20:00 01/05/19 20:00 01/05/19 20:00 01/05/19 20:00 01/05/19 20:00 01/05/19 01/06/19 01/07/19 04:59 05:59 05:59 Intake Total Output Total Balance Physical Exam - Physical Exam General Appearance: WD/WN, alert, no apparent distress, other (No shoulder twitching noted) Respiratory: chest non-tender, lungs clear, normal breath sounds Cardiac/Chest: No edema Abdomen: normal bowel sounds, non-tender, soft, other (No suprapubic pain), No distended, No guarding Skin: warm/dry Extremities: No swelling, No Sabrina's sign Neuro/Psych: alert, motor weakness (Left greater than right lower extremity weakness; able to perform left supine leg lift lifting heel several inches off bed. Right supine SLR to 60. Ratchety type weakness noted when testing left ankle dorsiflexors. 4/5 right deltoid, biceps, triceps, brachioradialis; 4-/5 left deltoid, biceps, brachioradialis and triceps with ratcheting type weakness of the biceps and brachioradialis), depressed affect, No sensory deficit ICD10 Worksheet Patient Problems: Problems Problem Status Onset Dizziness Acute Left leg weakness Acute
[2019-01-06] MEDS: GABAPENTIN 300 MG CAP PO SCH ×2 (10:15→20:57)
[2019-01-06] MEDS: predniSONE 20 MG TAB PO SCH (10:15)
[2019-01-06] MEDS: SENNOSIDES 1 TAB PO PRN ×2 (10:16→14:17)
[2019-01-06] MEDS: LIDOCAINE 4%/MENTHOL 1% PATCH TD SCH (10:16)
[2019-01-06] MEDS: traMADol 50 MG TAB PO PRN ×2 (14:17→16:54)
[2019-01-06] MEDS: PATCH REMOVAL 1 EA PATCH TD SCH (20:55)
[2019-01-06] MEDS: CALCIUM CARBONATE 500 MG CHEWABLE TAB PO PRN (22:50)
[2019-01-07] MEDS: GABAPENTIN 300 MG CAP PO SCH ×2 (08:37→20:34)
[2019-01-07] MEDS: LIDOCAINE 4%/MENTHOL 1% PATCH TD SCH (08:37)
[2019-01-07] MEDS: predniSONE 20 MG TAB PO SCH (08:38)
--- NOTE | 2019-01-07 09:43 | SOAPPROG ---
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 Continue prednisone for total of 7 days, through 01/08/2019. * Initial functional independence measure is 82 on 01/07/2019. She is independent with bed mobility. She requires stand by assist for transfers. She ambulated 75 ft with a front wheeled walker, standby assist. She is independent to supervision or standby assist level with most ADLs. * Possible element of conversion disorder as PT and OT note inconsistencies in her function. However she is improving so there is no need for psychiatric consultation. * Continue PT and OT. Myoclonic twitching of the left shoulder. This is not interfering with her sleep and does not cause her significant discomfort. She is on a low dose of gabapentin which she reported initially caused her some sedation. Consider increasing gabapentin. Feelings of dizziness. She has been discharged with an order for meclizine, which she has not used.. Constipation while in the hospital which responded to suppository. * Resolved. Continue senna and bisacodyl suppository on a p.r.n. basis. Prophylaxis. She is young and she has movement of the left lower extremity. She is low risk for deep venous thrombosis, especially if she is able to mobilize increasingly. I will not prescribe pharmacologic prophylaxis. DISPOSITION: Attended staffing, 15 min. Discussed with case management, dietitian, nursing, PT, OT. She lives alone in a 2nd story apartment, with an elevator to enter. Her mother is arriving tomorrow from [facility] to assist. 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 Tentative discharge date set for 01/11/2019. FOLLOWUP: Follow up with neurologist, Dr. Barney Young, as planned after discharge for EMG studies to fully characterize the nature of her polyneuropathy. She will also follow up at the [facility] vision care associate, Dr. Gonzalez, regarding the lymphocytosis which, however, appears to be resolving. 01/07/19 11:25 Subjective: Has a headache today. Says she gets migraines periodically. She says the pain is usually one-sided but can be both sided. It is a steady pain and not a pounding pain. She gets sick to her stomach when she has the headache. Intensity is approximately 5/10. It can last for hours. She usually takes ibuprofen for it. She is not sure if other measures per nursing, including lidocaine patch, and ice are helpful. She is sleeping well. No fevers or chills, no cough or dyspnea. She is feeling stronger. Objective: Vital Signs Temp Pulse Resp BP Pulse Ox 36.8 C 72 17 104/70 96 01/07/19 08:00 01/07/19 08:00 01/07/19 08:00 01/07/19 08:00 01/07/19 08:00 01/06/19 01/07/19 01/08/19 05:59 05:59 05:59 Intake Total 1340 Output Total 1850 Balance -510 - Time Spent With Patient Time Spent With Patient: Greater than 35 min floor time today, including more than 50% of time in coordination of care during staffing meeting, and counseling patient. 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
[2019-01-07] MEDS: CALCIUM CARBONATE 500 MG CHEWABLE TAB PO PRN (12:49)
[2019-01-07] MEDS: traMADol 50 MG TAB PO PRN (20:34)
[2019-01-07] MEDS: PATCH REMOVAL 1 EA PATCH TD SCH (21:11)
[2019-01-08] MEDS: predniSONE 20 MG TAB PO SCH (08:47)
[2019-01-08] MEDS: GABAPENTIN 300 MG CAP PO SCH ×2 (08:47→21:03)
[2019-01-08] MEDS: CALCIUM CARBONATE 500 MG CHEWABLE TAB PO PRN (08:53)
[2019-01-08] MEDS: LIDOCAINE 4%/MENTHOL 1% PATCH TD SCH (10:14)
[2019-01-08] MEDS ORDERED: traMADol 50 MG TAB PO PRN (10:50)
--- NOTE | 2019-01-08 12:26 | SOAPPROG ---
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 Continue prednisone for total of 7 days, through 01/08/2019. * Initial functional independence measure is 82 on 01/07/2019. She is independent with bed mobility. She requires stand by assist for transfers. She ambulated 75 ft with a front wheeled walker, standby assist. She is independent to supervision or standby assist level with most ADLs. * Advanced to independent in room using front wheeled walker, 01/08/2019. * Possible element of conversion disorder as PT and OT note inconsistencies in her function. However she is improving so there is no need for psychiatric consultation. * Continue PT and OT. Myoclonic twitching of the left shoulder. This is not interfering with her sleep and does not cause her significant discomfort. She is on a low dose of gabapentin which she reported initially caused her some sedation. Consider increasing gabapentin. Feelings of dizziness. She has been discharged with an order for meclizine, which she has not used.. * She reports dizziness has resolved, 01/08/2019. Constipation while in the hospital which responded to suppository. * Resolved. Continue senna and bisacodyl suppository on a p.r.n. basis. Prophylaxis. She is young and she has movement of the left lower extremity. She is low risk for deep venous thrombosis, especially if she is able to mobilize increasingly. I will not prescribe pharmacologic prophylaxis. DISPOSITION: She lives alone in a 2nd story apartment, with an elevator to enter. Her mother is arriving tomorrow from [facility] to assist. 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 Tentative discharge date set for 01/11/2019. FOLLOWUP: Follow up with neurologist, Dr. Barney Young, as planned after discharge for EMG studies to fully characterize the nature of her polyneuropathy. She will also follow up at the [facility] packing clerk, Dr. Gonzalez, regarding the lymphocytosis which, however, appears to be resolving. 01/08/19 12:25 Subjective: No complaints. Slept well. Not in pain. Feeling stronger. Objective: Vital Signs Temp Pulse Resp BP Pulse Ox 36.6 C 85 16 120/84 H 96 01/08/19 08:00 01/08/19 08:00 01/08/19 08:00 01/08/19 08:00 01/08/19 08:00 01/07/19 01/08/19 01/09/19 05:59 05:59 05:59 Intake Total 1340 1525 240 Output Total 1850 1000 Balance -510 525 240 Physical Exam - Physical Exam General Appearance: WD/WN, alert, no apparent distress Respiratory: No respiratory distress, No accessory muscle use Skin: normal color, warm/dry Neuro/Psych: alert, normal mood/affect, oriented x 3, No abnormal gait ( Observed normal gait while walking in [place] with front wheeled walker.) ICD10 Worksheet Patient Problems: Problems Problem Status Onset Dizziness Acute Left leg weakness Acute
[2019-01-08] MEDS: PATCH REMOVAL 1 EA PATCH TD SCH (21:04)
[2019-01-09] MEDS: GABAPENTIN 300 MG CAP PO SCH ×2 (09:22→21:57)
[2019-01-09] MEDS: LIDOCAINE 4%/MENTHOL 1% PATCH TD SCH (09:25)
--- NOTE | 2019-01-09 09:54 | SOAPPROG ---
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 Had prednisone for total of 7 days, through 01/08/2019. * Initial functional independence measure is 82 on 01/07/2019. She is independent with bed mobility. She requires stand by assist for transfers. She ambulated 75 ft with a front wheeled walker, standby assist. She is independent to supervision or standby assist level with most ADLs. * Advanced to independent in room using front wheeled walker, 01/08/2019. * Possible element of conversion disorder as PT and OT note inconsistencies in her function. However she is improving so there is no need for psychiatric consultation. * Continue PT and OT. Myoclonic twitching of the left shoulder. This is not interfering with her sleep and does not cause her significant discomfort. She is on a low dose of gabapentin which she reported initially caused her some sedation. Consider increasing gabapentin. Feelings of dizziness. She has been discharged with an order for meclizine, which she has not used. * She reports dizziness has resolved, 01/08/2019. Constipation while in the hospital which responded to suppository. * Resolved. Continue senna and bisacodyl suppository on a p.r.n. basis. Prophylaxis. She is young and she has movement of the left lower extremity. She is low risk for deep venous thrombosis, especially if she is able to mobilize increasingly. No indication for pharmacologic prophylaxis. DISPOSITION: She lives alone in a 2nd story apartment, with an elevator to enter. Her mother is arriving tomorrow from [facility] to assist. 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 Tentative discharge date set for 01/11/2019. FOLLOWUP: Follow up with neurologist, Dr. Barney Young, as planned after discharge for EMG studies to fully characterize the nature of her polyneuropathy. She will also follow up at the [facility] corner cutter, Dr. Gonzalez, regarding the lymphocytosis which, however, appears to be resolving. 01/09/19 09:52 Subjective: No complaints. Feeling stronger. Asks if she can safely travel to [place] in 2 weeks over her school spring break. Has moved [place] [id number] for increased independence. Objective: Vital Signs Temp Pulse Resp BP Pulse Ox 36.5 C 82 15 104/68 95 01/08/19 19:10 01/08/19 19:10 01/08/19 19:10 01/08/19 19:10 01/08/19 19:10 01/08/19 01/09/19 01/10/19 05:59 05:59 05:59 Intake Total 1525 1040 400 Output Total 1000 Balance 525 1040 400 Physical Exam - Physical Exam General Appearance: WD/WN, alert, no apparent distress Respiratory: No respiratory distress, No accessory muscle use Skin: normal color, warm/dry Neuro/Psych: alert, normal mood/affect, oriented x 3, other (Continues to have myoclonic jerks of the left shoulder) ICD10 Worksheet Patient Problems: Problems Problem Status Onset Dizziness Acute Left leg weakness Acute
[2019-01-09] MEDS: PATCH REMOVAL 1 EA PATCH TD SCH (22:13)
[2019-01-10] MEDS: LIDOCAINE 4%/MENTHOL 1% PATCH TD SCH (09:05)
[2019-01-10] MEDS: GABAPENTIN 300 MG CAP PO SCH (09:36)
[2019-01-10 12:28] VITALS: BP 116/77
--- NOTE | 2019-01-10 15:16 | GDS ---
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 COMPLICATIONS: None. CONSULTATIONS: None. PROCEDURES: None. HISTORY AND HOSPITAL COURSE: This patient was admitted from [facility]. She presented there on 12/31/2018 with acute onset of dizziness and weakness. Evaluation included brain MRI, spinal MRI, head CT, lumbar puncture. These were all negative for any active processes. She was diagnosed with an inflammatory polyneuropathy likely due to recent Tone-Hutton virus mononucleosis. She was treated with high-dose IV steroids and then a seven-day course of prednisone. She had twitching of the left shoulder and shooting neuropathic pain which was treated with gabapentin. She was requiring considerable assistance for mobility and her activities of daily living, so she was transferred to inpatient rehabilitation. She had rapid recovery and regained full independent function. Myoclonic twitching of the shoulder did not remit. She did not feel that gabapentin was helpful. A course of prednisone was completed on 01/08/2019. DISCHARGE PLAN: Disposition is returning home where she lives in a second- story apartment which can be accessed by elevator. DISCHARGE CONDITION: Good. ACTIVITY: Ad kim. DIET: Regular. ALLERGIES: There are no known drug allergies. MEDICATIONS UPON DISCHARGE: 1. Calcium carbonate 500 to 1000 mg p.o. four times daily p.r.n. dyspepsia. 2. Lidocaine patch daily. ISSUES TO BE ADDRESSED AT FOLLOWUP: 1. Mobility and activities of daily living. She will continue outpatient physical therapy. She can follow up with her primary care provider regarding her progress. 2. Inflammatory polyneuropathy. She will have follow up with neurologist, Dr. Barney Young, on 01/17/2019, at 10:45 a.m. for EMG studies. 3. History of lymphocytosis while in the hospital. Plan is for her to follow up with supply room clerk/oncologist, Dr. Marco Antonio Gonzalez. Copy requested to: RAUDEL Alanis /[id number]/MODL MTDD
--- NOTE | 2019-01-11 09:30 | PDOREHIP ---
Admission [facility] - Admission - 3 Day Assessment Period Admission Date/Day 1: 01/04/19 Day 2: 01/05/19 Day 3: 01/06/19 - Active Diagnoses Comorbidities and Co-existing Conditions at Admission: 29703. None of the Above Discharge [facility] - Discharge - 3 Day Assessment Period 2 Days Prior to Anticipated Discharge Date: 01/08/19 1 Day Prior to Anticipated Discharge Date: 01/09/19 Anticipated Discharge Date: 01/10/19 - Discharge Skin Conditions Unhealed Pressure Ulcer (1 or more/Stage 1 or >)-Discharge: 0. No # Stage 1 Pressure Ulcers-Discharge: 0 # Stage 2 Pressure Ulcers-Discharge: 0 # of These Stage 2 Pressure Ulcers Present on Admission: 0 # Stage 3 Pressure Ulcers-Discharge: 0 # of These Stage 3 Pressure Ulcers Present on Admission: 0 # Stage 4 Pressure Ulcers-Discharge: 0 # of These Stage 4 Pressure Ulcers Present on Admission: 0 # Unstageable Pressure Ulcers (Non-remove Dress)-Discharge: 0 # These Unstageable Pressure Ulcers (NRD)-Present on Admit: 0 # Unstageable Pressure Ulcers (Slough/Eschar)-Discharge: 0 # These Unstageable Pressure Ulcers(Slough) Present on Admit: 0 # Unstageable Pressure Ulcers (Deep Tissue Injury)-Discharge: 0 # These Unstageable Pressure Ulcers (DTI) Present on Admit: 0
== END 2019-01-10 12:55 | disposition home or self-care (01) | DRG 95 ==
LOC: BREH 16:11
PROVIDERS: ADMIT Internal Medicine Hospice and Palliative Medicine; ATTEND Internal Medicine Hospice and Palliative Medicine
PROC: F08Z7ZZ Vocational Activities and Functional Community or Work Reintegration Skills Treatment (ICD-10-PCS; principal; 2019-01-04)
PROC: F07M3ZZ Motor Function Treatment of Musculoskeletal System - Whole Body (ICD-10-PCS; principal; 2019-01-04)
PROC: F0636ZZ Communicative/Cognitive Integration Skills Treatment of Neurological System - Whole Body (ICD-10-PCS; principal; 2019-01-04)
DX: G61.0 Guillain-Barre syndrome (principal); G81.94 Hemiplegia, unspecified affecting left nondominant side; B94.8 Sequelae of other specified infectious and parasitic diseases; G25.3 Myoclonus
CPT/HCPCS: 97110-GO; 97110-GP; 97112-GP; 97116-GP; 97162-GP; 97166-GO; 97530-GO; 97530-GP; 97535-GO; 97542-GP; J7512

== ENCOUNTER → 2019-01-21 | Outpatient (CLI) | payer OTHER ==
--- NOTE | 2019-01-22 06:01 | CPEEG ---
[f rep st] ELECTROENCEPHALOGRAM EEG DATE OF STUDY: 01/21/2019 DATE OF INTERPRETATION: 01/21/2019 INTERPRETATION: Normal EEG during wakefulness and sleep. There were no potentially epileptogenic abnormalities present during the recording. In addition, the patient had some arm movements during the recording. There was no EEG correlate with these symptoms. REPORT: This EEG contains 10 Hz alpha activity over the posterior head regions. The background activity was normal and symmetric. The patient had no abnormal activation at rest, during photic stimulation or hyperventilation. The patient became drowsy and fell asleep during the study. There was no abnormal activation during drowsiness, sleep, or during times of arousal. In addition, the patient had some arm movements during the recording. There was no EEG correlate with these symptoms. /[id number]/MODL MTDD
== END ==
LOC: FCPNEURO 13:01
PROVIDERS: ATTEND Psychiatry & Neurology Neurology
DX: R25.3 Fasciculation (principal)